=== PATIENT | female | born 1990 | race Caucasian/White ===

== ENCOUNTER 2018-07-16 11:33 | Inpatient (IN) | payer MEDICAID | END 2018-07-17 11:54 | disposition home or self-care (01) | LOC: ER 11:33 → ED HOLD 14:57 → SUR 3N 21:20 ==

== ENCOUNTER 2018-07-26 20:42 | Emergency (ER) | payer MEDICAID ==
[~2018-07-26] VITALS: Ht 170.2 cm; Wt 61.4 kg
[~2018-07-26 20:42] MED LIST: AMIT100T2 PO; DULO-31 PO; HYDR-3965 PO; ONDA4TAB6 PO
[2018-07-26] MEDS ORDERED: normal saline 1000ML IV soln IVB ONE (20:50)
[2018-07-26] MEDS ORDERED: LORazepam 2 mg/ml vial IV ONE (20:50)
--- NOTE | 2018-07-26 21:20 | NUR ---
CONTACTED POISON CONTROL REGARDING INGESTION OF MITRAGYNA SPECIOSA. POISON CONTROL RECOMENDS CMP, EKG, AND SUPPORTIVE CARE WITH BENZOS NEEDED. MONITOR PT FOR SZ'S, HTN, TACHYCARDIA, GI UPSET, AND WITHDRAWL SYMPTOMS. POISON CONTROL DID NOT SPECIFY A SPECIFIC AMOUNT OF TIME PT NEEDED TO BE MONITORED IN ED.
[2018-07-26 21:25] LABS: ALANINE AMINOTRANSFERASE 31 U/L (12-78); ALBUMIN 3.7 G/DL (3.4-5.0); ALBUMIN/GLOBULIN RATIO 1.3 (1.1-1.5); ALKALINE PHOSPHATASE 58 IU/L (46-116); ANION GAP 10 (8-16); ASPARTATE AMINO TRANSFERASE 23 U/L (10-37); BILIRUBIN,TOTAL 0.3 MG/DL (0.1-1.0); BLOOD UREA NITROGEN 8 MG/DL (7-18); BUN/CREATININE RATIO 10.8 (6.6-38.0); CALCIUM 8.1 MG/DL (8.5-10.1); CHLORIDE 106 MMOL/L (99-107); CREATININE 0.74 MG/DL (0.40-0.90); ETHANOL < 0.010 GM/DL (0.0-0.010); GLUCOSE 131 MG/DL (70-104); POTASSIUM 3.6 MMOL/L (3.5-5.1); SODIUM 140 MMOL/L (135-145); TOTAL CARBON DIOXIDE 24.4 MMOL/L (24-32); TOTAL PROTEIN 6.6 G/DL (6.4-8.2); eGFR > 90 ML/MIN
[2018-07-26 21:26] LABS: BASOPHILS % (AUTO) 0.1 % (0-1); EOSINOPHILS # (AUTO) 0.1 X10'3 (0-0.9); EOSINOPHILS % (AUTO) 0.3 % (0-6); HEMATOCRIT 36.6 % (35.0-45.0); LYMPHOCYTES # (AUTO) 1.8 X10'3 (1.1-4.8); LYMPHOCYTES % (AUTO) 11.8 % (21-51); MEAN CORPUSCULAR HEMOGLOBIN 29.2 PG (27.0-31.0); MEAN CORPUSCULAR HGB CONC 32.7 g/dL (33.0-36.5); MEAN CORPUSCULAR VOLUME 89.4 FL (78-98); MEAN PLATELET VOLUME 6.7 FL (7.4-10.4); MONOCYTES # (AUTO) 0.5 X10'3 (0-0.9); MONOCYTES % (AUTO) 3.3 % (2-12); NEUTROPHILS % (AUTO) 84.5 % (42-75); PLATELET COUNT 432 X10'3 (140-440); RED BLOOD COUNT 4.09 X10'6 (4.20-5.60); RED CELL DISTRIBUTION WIDTH 14.4 % (11.5-14.5); WHITE BLOOD COUNT 15.3 X10'3 (4.5-11.0)
[2018-07-26 21:31] LABS: ACETAMINOPHEN < 2.0 UG/ML (10-30)
[2018-07-26 22:16] LABS: URINE HCG NEGATIVE (NEG)
[2018-07-26 22:24] LABS: CLARITY,URINE CLEAR (Clear); COLOR,URINE YELLOW (Yellow); GLUCOSE, URINE NEGATIVE (Neg); KETONES,URINE NEGATIVE (Neg); LEUKOCYTE ESTERASE ,URINE NEGATIVE (Neg); NITRITES, URINE NEGATIVE (Neg); OCCULT BLOOD,URINE NEGATIVE (Neg); PROTEIN,URINE NEGATIVE (Neg); UROBILINOGEN,URINE 0.2 E.U/dL (0.2-1.0)
[2018-07-26 22:27] LABS: URINE AMPHETAMINE SCREEN POSITIVE (Neg); URINE BARBITUATE SCREEN NEGATIVE (Neg); URINE BENZODIAZEPINES SCREEN NEGATIVE (Neg); URINE CANNABINOID SCREEN POSITIVE (Neg); URINE COCAINE SCREEN NEGATIVE (Neg); URINE METHADONE SCREEN NEGATIVE (Neg); URINE OPIATE SCREEN POSITIVE (Neg); URINE PHENCYCLIDINE SCREEN NEGATIVE (Neg)
[2018-07-26 22:29] LABS: UA COLLECTION TYPE NON-SPECIFIED
[2018-07-26 23:07] VITALS: BP 146/94
== END 2018-07-26 23:12 | disposition home or self-care (01) ==
LOC: ER 20:42
DX: T60.3X1A Toxic effect of herbicides and fungicides, accidental (unintentional), initial encounter (principal); F41.9 Anxiety disorder, unspecified; F15.10 Other stimulant abuse, uncomplicated; F11.90 Opioid use, unspecified, uncomplicated; Z79.899 Other long term (current) drug therapy; Y92.89 Other specified places as the place of occurrence of the external cause
CPT/HCPCS: 36415; 80053; 80305; 80320; 80329; 81003; 81025; 85025; 93005; 96374; 99284; J2060; J7030

== ENCOUNTER 2018-09-27 09:34 | Outpatient (CLI) | payer MEDICAID ==
[~2018-09-27 09:34] MED LIST changes: -HYDR-3965 PO
== END 2018-09-27 23:59 | disposition home or self-care (01) ==
LOC: RAD 09:34
PROVIDERS: ATTEND Nurse Practitioner Family
DX: R56.9 Unspecified convulsions (principal); F19.10 Other psychoactive substance abuse, uncomplicated
CPT/HCPCS: 95819

== ENCOUNTER 2019-12-30 10:17 | Emergency (ER) | payer MEDICAID ==
[~2019-12-30] VITALS: Ht 167.6 cm; Wt 55.1 kg
[2019-12-30] MEDS ORDERED: LEVE750T6 PO (10:36)
[2019-12-30 11:57] VITALS: BP 141/99
== END 2019-12-30 11:59 | disposition home or self-care (01) ==
LOC: ER 10:17
DX: G40.909 Epilepsy, unspecified, not intractable, without status epilepticus (principal); F11.10 Opioid abuse, uncomplicated; F19.10 Other psychoactive substance abuse, uncomplicated; F15.90 Other stimulant use, unspecified, uncomplicated; Z79.899 Other long term (current) drug therapy
CPT/HCPCS: 99284

== ENCOUNTER 2020-03-03 13:17 | Inpatient (IN) | payer MEDICAID ==
[~2020-03-03] VITALS: Ht 162.6 cm; Wt 61.2 kg
[~2020-03-03 13:17] MED LIST changes: +LEVE750T6 PO; +etomidate 2mg/ml inj. ONE; +rocuronium 10mg/ml inj IV ONE; +sodium bicarbonate (8.4%) 1 mEq/ml syringe ONE
--- NOTE | 2020-03-03 13:22 | NUR ---
Patient received 1 amp of bicarb per MD orders. Preparing to intubate. Patient started having a seizure, grand mal seizure. lasting approx. 15 seconds. Blood glucose per EMS 101 mg/dL.
[2020-03-03] MEDS ORDERED: LORazepam 2 mg/ml vial ONE (13:24)
--- NOTE | 2020-03-03 13:25 | NUR ---
Preparing 1 mg IV ativan, Administering 1 mg IV Ativan once now.
--- NOTE | 2020-03-03 13:25 | NUR ---
Intermittent seizures lasting approx. 1 Addendum: 03/03/20 at 1325 by HKISER 20 seconds in length.
--- NOTE | 2020-03-03 13:26 | NUR ---
Etomidate 20 mg IV prepared by Geoff hidalgo.
[2020-03-03] MEDS ORDERED: succinylcholine 20mg/ml inj IV ONE (13:27)
--- NOTE | 2020-03-03 13:30 | NUR ---
From 1325 til current patient had three seizures lasting approx. 10-20 seconds in length.
[2020-03-03] MEDS: sodium bicarbonate (8.4%) inj. 150 MEQ in dextrose 5%-water 1,000 ML IV SCH ×2 (13:35→22:47)
[2020-03-03] MEDS ORDERED: normal saline 1000ml 1,000 ML IVB ONE ×2 (13:40)
[2020-03-03] MEDS ORDERED: levetiracetam inj 500 MG in normal saline 100ml IV soln 95 ML IV SCH ×2 (13:52→20:00)
[2020-03-03] MEDS ORDERED: LORazepam 2 mg/ml vial IV ONE (13:55)
--- NOTE | 2020-03-03 14:00 | NUR ---
posion control called
[2020-03-03] MEDS ORDERED: charcoal, activated 50 GM/240 ML bottle PO ONE (14:05)
[2020-03-03] MEDS ORDERED: PEG 3350/Na sulf,bicarb,Cl/KCl oral sol 4 liter bottle PO ONE ×2 (14:05→14:35)
--- NOTE | 2020-03-03 14:13 | NUR ---
Patients BP 49/27 Levophed titrated as ordered.
[2020-03-03] MEDS: NORepinephrine 8 MG in NS 250ml IV soln IV SCH ×3 (14:19→17:22)
[2020-03-03 14:21] LABS: ABG BASE EXCESS -7.5 mmol/L (-2.0-2.0); ABG HCO3 16.3 mmol/L (22.0-26.0); ABG PO2 (T) 251.5 mmHg (75.0-100.0); ALLEN'S TEST POSITIVE; PEEP 5 cm H2O; RESPIRATORY RATE 16 b/min; TIDAL VOLUME 450 mL; TOTAL HEMOGLOBIN 11.3 G/dl (12.0-16.0)
[2020-03-03] MEDS: propofol 1000mg/100ml bottle 100 ML IV SCH ×4 (14:22→19:48)
[2020-03-03] MEDS: Levetiracetam-NS 500mg/100ml 100 ML IV SCH (14:22)
--- NOTE | 2020-03-03 14:26 | NUR ---
2 amps bi carb push at [address] Sequeira push two more amps stat. 1425- 2 amps bi-carb push.
[2020-03-03 14:28] LABS: BASOPHILS % (AUTO) 0.5 % (0-1); EOSINOPHILS # (AUTO) 0.1 X10'3 (0-0.9); EOSINOPHILS % (AUTO) 0.9 % (0-6); HEMATOCRIT 35.2 % (35.0-45.0); HEMOGLOBIN 11.7 g/dl (12.0-16.0); MEAN CORPUSCULAR HEMOGLOBIN 29.7 PG (27.0-31.0); MEAN CORPUSCULAR HGB CONC 33.2 g/dL (33.0-36.5); MEAN CORPUSCULAR VOLUME 89.5 FL (78-98); MEAN PLATELET VOLUME 7.1 FL (7.4-10.4); MONOCYTES # (AUTO) 0.3 X10'3 (0-0.9); MONOCYTES % (AUTO) 5.8 % (2-12); NEUTROPHILS # (AUTO) 3.2 X10'3 (1.8-7.7); NEUTROPHILS % (AUTO) 56.8 % (42-75); PLATELET COUNT 265 X10'3 (140-440); RED BLOOD COUNT 3.93 X10'6 (4.20-5.60); RED CELL DISTRIBUTION WIDTH 13.5 % (11.5-14.5); WHITE BLOOD COUNT 5.7 X10'3 (4.5-11.0)
[2020-03-03] MEDS ORDERED: charcoal, activated 50 GM/240 ML bottle PO STA (14:30)
[2020-03-03 14:31] LABS: ALANINE AMINOTRANSFERASE 16 U/L (12-78); ALBUMIN 3.5 G/DL (3.4-5.0); ALBUMIN/GLOBULIN RATIO 1.1 (1.1-1.5); ALKALINE PHOSPHATASE 52 IU/L (46-116); ANION GAP 9 (8-16); ASPARTATE AMINO TRANSFERASE 16 U/L (10-37); BILIRUBIN,TOTAL 0.5 MG/DL (0.1-1.0); BLOOD UREA NITROGEN 4 MG/DL (7-18); BUN/CREATININE RATIO 5.2 (6.6-38.0); CALCIUM 8.4 MG/DL (8.5-10.1); CHLORIDE 111 MMOL/L (99-107); CREATININE 0.77 MG/DL (0.40-0.90); GLUCOSE 96 MG/DL (70-104); MAGNESIUM 1.9 MG/DL (1.5-2.4); SODIUM 151 MMOL/L (135-145); TOTAL CARBON DIOXIDE 30.8 MMOL/L (24-32); TOTAL PROTEIN 6.7 G/DL (6.4-8.2); eGFR 90 ML/MIN
--- NOTE | 2020-03-03 14:32 | NUR ---
Spoke with patients mother, Yahaira Koenig, who stated that her daughter had come over to her house and when she sat on the bed she stood up, feeling dizziness and stumbled. Mother then looked at her medication bottles and noticed that the whole bottle of medication, amitriptyline, was empty, mother estimates that she had taken approx. 30-40 tablets. She also stated that she is unsure whether she has been taking her keppra, she is currently going to the [facility] for suboxone treatments as well. I discussed with her patients clinic status and discussed having her come in to ED to see her daughter with Dr. Ochoa and Anjali Mckeon RN, who both agreed that she could come into room after Dr. Sequeira had completed artial line insertion. Yahaira notified.
--- NOTE | 2020-03-03 14:39 | NUR ---
Charcoal adminstered via OG by CHANCE Williamson
--- NOTE | 2020-03-03 14:42 | NUR ---
2 amps carb IVP hsz- [id number]
--- NOTE | 2020-03-03 14:47 | NUR ---
Dr. Sequeira at bedside for art line
--- NOTE | 2020-03-03 14:50 | NUR ---
Option for treatment seizures if versed fails to control them, try administering phenobarbital bolus doses and decrease Propofol to maintain adequate blood pressure. Poison control MD does not recommend drip at this time. Dr. Parada until 1599, Contact poison center after 1599. Addendum: 03/03/20 at [address] Sequeira regarding update from Dr. Parada
--- NOTE | 2020-03-03 14:55 | NUR ---
Verbal order to increase propofol to 20mcg/kg/min
[2020-03-03] MEDS ORDERED: magnesium 4gm in 100ml NS 100 ML IV PRN (15:10)
[2020-03-03] MEDS ORDERED: Neutra Phos packet PO PRN (15:10)
[2020-03-03] MEDS ORDERED: potassium Cl 20 mEq SR tablet PO PRN ×2 (15:10)
[2020-03-03] MEDS ORDERED: LIDOcaine 2% 10ml TOPICAL JELLY (Urojet) TP ONE (15:10)
[2020-03-03] MEDS: K, MAG and/or Phos replacement - Verify level? MC SCH (15:10)
[2020-03-03] MEDS ORDERED: sodium phosphate inj. 30 MMOL in dextrose 5%-water 250 ML IV PRN (15:10)
[2020-03-03] MEDS ORDERED: magnesium 2GM in 50ml NS 50 ML IV PRN (15:10)
[2020-03-03] MEDS ORDERED: magnesium Cl slow-release 64mg tablet PO PRN (15:10)
[2020-03-03] MEDS ORDERED: sodium phosphate inj. 15 MMOL in dextrose 5%-water 250 ML IV PRN (15:10)
--- NOTE | 2020-03-03 15:17 | NUR ---
1510-2 AMPS BICARB IVP
[2020-03-03] MEDS ORDERED: PHENOBARBITAL IV ONE (15:20)
[2020-03-03] MEDS ORDERED: NORMAL SALINE IV ONE (15:20)
--- NOTE | 2020-03-03 15:22 | NUR ---
rectal tube inserted.
--- NOTE | 2020-03-03 15:34 | NUR ---
Vicente eKithtly administered via OG tube by CHANCE Davis
[2020-03-03 15:36] LABS: ABG BASE EXCESS 13.2 mmol/L (-2.0-2.0); ABG HCO3 35.5 mmol/L (22.0-26.0); ABG OXYGEN SATURATION 97.2 % (94-97); ABG PCO2 (T) 36.2 mmHg (32.0-45.0); ABG PO2 (T) 93.5 mmHg (75.0-100.0); FCOHb 0.5 % (0.0-3.9); FO2Hb 96.7 % (94-97); RESPIRATORY RATE 16 b/min; TIDAL VOLUME 450 mL; TOTAL HEMOGLOBIN 10.5 G/dl (12.0-16.0)
[2020-03-03 15:50] LABS: ABG BASE EXCESS 10.5 mmol/L (-2.0-2.0); ABG OXYGEN SATURATION 83.9 % (94-97); ABG PCO2 (T) 36.2 mmHg (32.0-45.0); ABG PO2 (T) 40.2 mmHg (75.0-100.0); FO2Hb 83.1 % (94-97); PEEP 5 cm H2O; RESPIRATORY RATE 20 b/min; TIDAL VOLUME 450 mL; TOTAL HEMOGLOBIN 11.5 G/dl (12.0-16.0)
--- NOTE | 2020-03-03 15:50 | NUR ---
2 amps bicarb IVP now
--- NOTE | 2020-03-03 15:54 | NUR ---
Dr Sequeira aware that levophed maxed out.
--- NOTE | 2020-03-03 16:06 | NUR ---
2 amps bi carb ivp now QRS 130
[2020-03-03 16:09] LABS: ACETAMINOPHEN 3.7 UG/ML (10-30); ALANINE AMINOTRANSFERASE 20 U/L (12-78); ALBUMIN 2.9 G/DL (3.4-5.0); ALBUMIN/GLOBULIN RATIO 1.2 (1.1-1.5); ALKALINE PHOSPHATASE 45 IU/L (46-116); ANION GAP 4 (8-16); ASPARTATE AMINO TRANSFERASE 28 U/L (10-37); BILIRUBIN,TOTAL 0.7 MG/DL (0.1-1.0); BLOOD UREA NITROGEN 4 MG/DL (7-18); BUN/CREATININE RATIO 5.5 (6.6-38.0); CHLORIDE 114 MMOL/L (99-107); CREATININE 0.73 MG/DL (0.40-0.90); ETHANOL 0.041 GM/DL (0.0-0.010); GLUCOSE 105 MG/DL (70-104); TOTAL CARBON DIOXIDE 39.8 MMOL/L (24-32); TOTAL PROTEIN 5.4 G/DL (6.4-8.2); eGFR > 90 ML/MIN
[2020-03-03] MEDS ORDERED: calcium chloride inj. 10,000 MG in normal saline 500ml IV soln 400 ML IV PRN (16:10)
--- NOTE | 2020-03-03 16:19 | NUR ---
Dr Sequeira at bedside for liane placement
[2020-03-03 16:20] LABS: POTASSIUM 2.9 MMOL/L (3.5-5.1); SODIUM 158 MMOL/L (135-145)
[2020-03-03] MEDS ORDERED: LEVE750T PO (16:32)
[2020-03-03] MEDS ORDERED: LORA10TA7 PO (16:32)
[2020-03-03] MEDS ORDERED: BUPR1FIL3 SL (16:32)
[2020-03-03] MEDS ORDERED: GABA300C PO (16:32)
[2020-03-03] MEDS ORDERED: ALBU2.5V10 IH (16:32)
[2020-03-03] MEDS ORDERED: BUSP15TA3 PO (16:32)
[2020-03-03] MEDS ORDERED: OLAN2.5T28 PO (16:32)
[2020-03-03] MEDS ORDERED: SERT50TA10 PO ×2 (16:32)
[2020-03-03] MEDS ORDERED: FLUT16SP26 NS (16:32)
[2020-03-03] MEDS ORDERED: ACET-1025 PO (16:35)
[2020-03-03] MEDS ORDERED: MELA5TAB12 PO (16:35)
[2020-03-03 16:39] LABS: URINE HCG NEGATIVE (NEG)
[2020-03-03 16:42] LABS: CLARITY,URINE CLEAR (Clear); COLOR,URINE YELLOW (Yellow); GLUCOSE, URINE NEGATIVE (Neg); KETONES,URINE NEGATIVE (Neg); LEUKOCYTE ESTERASE ,URINE NEGATIVE (Neg); NITRITES, URINE NEGATIVE (Neg); OCCULT BLOOD,URINE NEGATIVE (Neg); PH,URINE 8.5 (4.8-8.0); PROTEIN,URINE NEGATIVE (Neg); UA COLLECTION TYPE FOLEY CATH; UROBILINOGEN,URINE 0.2 E.U/dL (0.2-1.0)
[2020-03-03 16:45] LABS: URINE AMPHETAMINE SCREEN POSITIVE (Neg); URINE BARBITUATE SCREEN POSITIVE (Neg); URINE BENZODIAZEPINES SCREEN NEGATIVE (Neg); URINE CANNABINOID SCREEN POSITIVE (Neg); URINE COCAINE SCREEN NEGATIVE (Neg); URINE METHADONE SCREEN NEGATIVE (Neg); URINE OPIATE SCREEN POSITIVE (Neg); URINE PHENCYCLIDINE SCREEN NEGATIVE (Neg)
[2020-03-03] MEDS ORDERED: potassium phosphate inj 30 MMOL in dextrose 5%-water 250 ML IV ONE (17:00)
--- NOTE | 2020-03-03 17:00 | NUR ---
Called Dr. Sequeira with critical phos 0.5. orders received for k phos 30 mmols over 1 hour. then another 30 mmols over 2 hours x 3 doses. pos to be drawn q [address] med orders. will enter lab orders.
--- NOTE | 2020-03-03 17:03 | NUR ---
ERVIN (MOTHER) PHONE NUMBER: [phone]
[2020-03-03] MEDS: midazolam 100mg in NS 100ml 100 ML IV PRN (17:23)
[2020-03-03] MEDS: potassium phosphate inj 30 MMOL in dextrose 5%-water 250 ML IV SCH ×2 (17:57→18:05)
--- NOTE | 2020-03-03 18:23 | NUR ---
Pt maintaing BP. Levophed discontinued.
--- NOTE | 2020-03-03 18:24 | NUR ---
Pt's mother at bedside. All belongings sent with her. Cell phone, shoes cigarettes and rv repairer. Pts' clothes were thrown away after being cut off.
--- NOTE | 2020-03-03 18:48 | NUR ---
I have received report from Sylvia FLETCHER from ED and had the opportunity to ask questions. Room is set up and awaiting PT arrival.
--- NOTE | 2020-03-03 19:30 | NUR ---
PT arrived to to unit via gurney @ 1910. PT was transferred over to ICU bed via slide-board and placed on bedside monitor. RT placed PT on Vent, setting are AC/VC FiO1 50%, rate 20, TV 450, PEEP 5. PT tolerating well, O2 sat greater than 97%. VSS. PT arrived with Levophed not being needed, ED RN stated it had been off prior to transfer. PT is in ST with HR in low 100's. obiee architect on unit and will be getting CVVH machine ready. PT has F/C in place draining to gravity as well as a rectal tube with no output noted at this time. Bed is locked and low. Bilat soft wrist restraints in place and secure. Will continue to monitor.
[2020-03-03 20:00] VITALS: BP 117/72
[2020-03-03] MEDS: heparin, porcine 5000 units/ml vial SQ SCH (20:00)
[2020-03-03] MEDS: Duosol 4k/NO Calcium 5,000 ML HE SCH ×3 (20:08→20:10)
[2020-03-03] MEDS: citrate dextrose 1000ml IV sol 1,000 ML IV PRN (20:11)
[2020-03-03 21:00] VITALS: BP 116/72
--- NOTE | 2020-03-03 21:14 | NUR ---
Call made to Pharmacy to get clarification for Potassium Phos order. Both eMar and label state two different run times of 130ml/hr as well 43.3ml/hr. Pharmacist states it was ok to run the K-Phos through a CVL 130ml/hr. Changes made in pump which has a max rate of 125ml/hr CRN verified rate change. Will continue to monitor.
[2020-03-03 22:00] VITALS: BP 118/76
[2020-03-03 22:35] LABS: ABG BASE EXCESS 1.3 mmol/L (-2.0-2.0); ABG HCO3 24.4 mmol/L (22.0-26.0); FCOHb 0.3 % (0.0-3.9); FMetHb 0.4 % (0.0-1.5); FO2Hb 98.3 % (94-97); PATIENT TEMPERATURE 36.1; PEEP 5 cm H2O; RESPIRATORY RATE 20 b/min; TIDAL VOLUME 450 mL; TOTAL HEMOGLOBIN 11.2 G/dl (12.0-16.0)
--- NOTE | 2020-03-03 22:45 | NUR ---
Lab called to report that the 2200 labs that were sent down were not able to be resulted. They have been cancelled and will be re-drawn
[2020-03-03 23:00] VITALS: BP 122/78
[2020-03-04] VITALS (24 sets, daily range): BP systolic 93–166; BP diastolic 59–100
[2020-03-04 00:03] LABS: ALANINE AMINOTRANSFERASE 20 U/L (12-78); ALBUMIN 2.9 G/DL (3.4-5.0); ALKALINE PHOSPHATASE 47 IU/L (46-116); ANION GAP 12 (8-16); ASPARTATE AMINO TRANSFERASE 38 U/L (10-37); BILIRUBIN,TOTAL 0.5 MG/DL (0.1-1.0); BLOOD UREA NITROGEN 5 MG/DL (7-18); CALCIUM 6.9 MG/DL (8.5-10.1); CHLORIDE 114 MMOL/L (99-107); CREATININE 0.71 MG/DL (0.40-0.90); GLUCOSE 96 MG/DL (70-104); MAGNESIUM 1.6 MG/DL (1.5-2.4); SODIUM 153 MMOL/L (135-145); TOTAL CARBON DIOXIDE 26.7 MMOL/L (24-32); TOTAL PROTEIN 5.7 G/DL (6.4-8.2); eGFR > 90 ML/MIN
[2020-03-04 00:09] LABS: POTASSIUM 2.8 MMOL/L (3.5-5.1)
[2020-03-04] MEDS ORDERED: calcium chloride inj. 1,000 MG in normal saline 100ml IV soln 100 ML IV PRN (00:10)
[2020-03-04] MEDS: potassium phosphate inj 30 MMOL in dextrose 5%-water 250 ML IV SCH (00:27)
[2020-03-04] MEDS: potassium Cl 20mEq/100mL bag 100 ML IV PRN ×6 (00:41→19:36)
[2020-03-04 00:45] LABS: BASOPHILS % (AUTO) 0.4 % (0-1); EOSINOPHILS % (AUTO) 0.4 % (0-6); LYMPHOCYTES # (AUTO) 1.1 X10'3 (1.1-4.8); LYMPHOCYTES % (AUTO) 11.7 % (21-51); MEAN PLATELET VOLUME 6.8 FL (7.4-10.4); MONOCYTES # (AUTO) 0.4 X10'3 (0-0.9); MONOCYTES % (AUTO) 4.5 % (2-12); NEUTROPHILS # (AUTO) 8.2 X10'3 (1.8-7.7); PLATELET COUNT 220 X10'3 (140-440); WHITE BLOOD COUNT 9.8 X10'3 (4.5-11.0)
[2020-03-04 00:56] LABS: ABG HCO3 24.3 mmol/L (22.0-26.0); ABG OXYGEN SATURATION 98.6 % (94-97); ABG PCO2 (T) 31.6 mmHg (32.0-45.0); ABG PO2 (T) 132.4 mmHg (75.0-100.0); FCOHb 0.3 % (0.0-3.9); FMetHb 0.3 % (0.0-1.5); PATIENT TEMPERATURE 35.5; PEEP 5 cm H2O; RESPIRATORY RATE 20 b/min; TIDAL VOLUME 450 mL; TOTAL HEMOGLOBIN 11.3 G/dl (12.0-16.0)
[2020-03-04] MEDS: propofol 1000mg/100ml bottle 100 ML IV SCH ×2 (01:00→06:43)
[2020-03-04 01:31] LABS: RED BLOOD COUNT 2.84 X10'6 (4.20-5.60)
[2020-03-04 01:32] LABS: HEMATOCRIT 25.6 % (35.0-45.0); HEMOGLOBIN 9.3 g/dl (12.0-16.0); MEAN CORPUSCULAR HEMOGLOBIN 32.8 PG (27.0-31.0); MEAN CORPUSCULAR HGB CONC 36.4 g/dL (33.0-36.5); MEAN CORPUSCULAR VOLUME 89.9 FL (78-98); RED CELL DISTRIBUTION WIDTH 12.9 % (11.5-14.5)
[2020-03-04] MEDS: citrate dextrose 1000ml IV sol 1,000 ML IV PRN (01:49)
[2020-03-04 02:02] LABS: BASOPHILS # (AUTO) 0.1 X10'3 (0-0.2); BASOPHILS % (AUTO) 0.7 % (0-1); EOSINOPHILS % (AUTO) 0.3 % (0-6); LYMPHOCYTES # (AUTO) 1.1 X10'3 (1.1-4.8); LYMPHOCYTES % (AUTO) 11.9 % (21-51); MONOCYTES # (AUTO) 0.4 X10'3 (0-0.9); MONOCYTES % (AUTO) 4.3 % (2-12); NEUTROPHILS # (AUTO) 7.6 X10'3 (1.8-7.7); NEUTROPHILS % (AUTO) 82.8 % (42-75)
[2020-03-04 02:09] LABS: HEMATOCRIT 29.5 % (35.0-45.0); HEMOGLOBIN 10.3 g/dl (12.0-16.0); MEAN CORPUSCULAR HEMOGLOBIN 31.5 PG (27.0-31.0); MEAN CORPUSCULAR HGB CONC 34.8 g/dL (33.0-36.5); MEAN CORPUSCULAR VOLUME 90.6 FL (78-98); RED BLOOD COUNT 3.26 X10'6 (4.20-5.60); RED CELL DISTRIBUTION WIDTH 13.2 % (11.5-14.5)
[2020-03-04 02:11] LABS: PLATELET COUNT 201 X10'3 (140-440); WHITE BLOOD COUNT 9.2 X10'3 (4.5-11.0)
[2020-03-04 02:12] LABS: MEAN PLATELET VOLUME 7.4 FL (7.4-10.4)
[2020-03-04 02:24] LABS: ALBUMIN 2.8 G/DL (3.4-5.0); ALKALINE PHOSPHATASE 48 IU/L (46-116); ANION GAP 17 (8-16); BILIRUBIN,TOTAL 0.6 MG/DL (0.1-1.0); BLOOD UREA NITROGEN 4 MG/DL (7-18); BUN/CREATININE RATIO 6.5 (6.6-38.0); CALCIUM 7.1 MG/DL (8.5-10.1); CHLORIDE 109 MMOL/L (99-107); CREATININE 0.62 MG/DL (0.40-0.90); MAGNESIUM 1.6 MG/DL (1.5-2.4); SODIUM 146 MMOL/L (135-145); TOTAL CARBON DIOXIDE 20.4 MMOL/L (24-32); TOTAL PROTEIN 5.6 G/DL (6.4-8.2); eGFR > 90 ML/MIN
[2020-03-04 02:25] LABS: GLUCOSE 121 MG/DL (70-104); PHOSPHORUS 2.7 MG/DL (2.3-4.5); POTASSIUM 3.4 MMOL/L (3.5-5.1)
[2020-03-04 02:36] LABS: ALANINE AMINOTRANSFERASE 20 U/L (12-78); ASPARTATE AMINO TRANSFERASE 38 U/L (10-37)
[2020-03-04] MEDS: magnesium 4gm in 100ml NS 100 ML IV PRN (03:03)
[2020-03-04 03:10] LABS: ABG BASE EXCESS -0.1 mmol/L (-2.0-2.0); ABG HCO3 23.3 mmol/L (22.0-26.0); ABG OXYGEN SATURATION 98.5 % (94-97); ABG PCO2 (T) 32.2 mmHg (32.0-45.0); ABG PO2 (T) 129.9 mmHg (75.0-100.0); FCOHb 0.3 % (0.0-3.9); FMetHb 0.2 % (0.0-1.5); PATIENT TEMPERATURE 35.9; PEEP 5 cm H2O; RESPIRATORY RATE 20 b/min; TIDAL VOLUME 450 mL; TOTAL HEMOGLOBIN 11.5 G/dl (12.0-16.0)
--- NOTE | 2020-03-04 03:30 | NUR ---
CVVH went down. bracelet maker novelty still in building and will be down to get machine up and running again.
[2020-03-04] MEDS: Duosol 4k/NO Calcium 5,000 ML HE SCH ×2 (04:44→04:45)
[2020-03-04 05:19] LABS: BASOPHILS % (AUTO) 0.2 % (0-1); EOSINOPHILS # (AUTO) 0.1 X10'3 (0-0.9); EOSINOPHILS % (AUTO) 0.9 % (0-6); HEMATOCRIT 29.5 % (35.0-45.0); HEMOGLOBIN 10.3 g/dl (12.0-16.0); LYMPHOCYTES # (AUTO) 1.4 X10'3 (1.1-4.8); MEAN CORPUSCULAR HEMOGLOBIN 31.2 PG (27.0-31.0); MEAN CORPUSCULAR VOLUME 89.2 FL (78-98); MEAN PLATELET VOLUME 6.9 FL (7.4-10.4); MONOCYTES # (AUTO) 0.4 X10'3 (0-0.9); MONOCYTES % (AUTO) 4.3 % (2-12); NEUTROPHILS # (AUTO) 6.7 X10'3 (1.8-7.7); NEUTROPHILS % (AUTO) 78.6 % (42-75); PLATELET COUNT 135 X10'3 (140-440); RED BLOOD COUNT 3.31 X10'6 (4.20-5.60); RED CELL DISTRIBUTION WIDTH 13.3 % (11.5-14.5); WHITE BLOOD COUNT 8.6 X10'3 (4.5-11.0)
[2020-03-04 05:29] LABS: ALBUMIN 2.6 G/DL (3.4-5.0); ALKALINE PHOSPHATASE 46 IU/L (46-116); ANION GAP 11 (8-16); BLOOD UREA NITROGEN 4 MG/DL (7-18); BUN/CREATININE RATIO 7.5 (6.6-38.0); CHLORIDE 113 MMOL/L (99-107); CREATININE 0.53 MG/DL (0.40-0.90); MAGNESIUM 3.1 MG/DL (1.5-2.4); SODIUM 150 MMOL/L (135-145); TOTAL PROTEIN 5.1 G/DL (6.4-8.2); eGFR > 90 ML/MIN
[2020-03-04 05:30] LABS: GLUCOSE 100 MG/DL (70-104); PHOSPHORUS 3.8 MG/DL (2.3-4.5); POTASSIUM 3.5 MMOL/L (3.5-5.1)
--- NOTE | 2020-03-04 05:30 | NUR ---
CVVH Machine still down, frame gate mortiser operator remains at bedside and has placed a call the to 1-800 # to trouble shoot the problem. PT's VS remain stable, Will continue to monitor.
[2020-03-04 05:32] LABS: PARTIAL THROMBOPLASTIN TIME 27 SECONDS (22-32)
[2020-03-04 05:41] LABS: ALANINE AMINOTRANSFERASE 14 U/L (12-78); ASPARTATE AMINO TRANSFERASE 25 U/L (10-37)
--- NOTE | 2020-03-04 06:45 | NUR ---
Patient in room ICU 2038. I have received report from Jude FLETCHER and had the opportunity to ask questions and assume patient care.
--- NOTE | 2020-03-04 07:03 | NUR ---
Problems reprioritized. Patient report given, questions answered & plan of care reviewed with Tammi FLETCHER.
[2020-03-04] MEDS: sodium bicarbonate (8.4%) inj. 150 MEQ in dextrose 5%-water 1,000 ML IV SCH ×2 (07:13→09:34)
[2020-03-04] MEDS ORDERED: heparin 1,000 units/ml 10ml inj HE ONE ×2 (07:30)
--- NOTE | 2020-03-04 07:45 | NUR ---
Please disregard CV treatment charge entered [id number] 03/04. It was a dry run only Addendum: 03/04/20 at 0746 by Dinora PAZ RN Amended: Links added.
[2020-03-04] MEDS: K, MAG and/or Phos replacement - Verify level? MC SCH (08:00)
[2020-03-04] MEDS: pantoprazole 40 MG vial IV SCH (08:04)
[2020-03-04] MEDS: Levetiracetam-NS 500mg/100ml 100 ML IV SCH ×2 (08:05→21:11)
[2020-03-04] MEDS: heparin, porcine 5000 units/ml vial SQ SCH ×2 (08:05→21:11)
[2020-03-04 09:25] LABS: ABG BASE EXCESS 4.7 mmol/L (-2.0-2.0); ABG HCO3 27.3 mmol/L (22.0-26.0); ABG OXYGEN SATURATION 95.4 % (94-97); ABG PCO2 (T) 34.4 mmHg (32.0-45.0); ABG PO2 (T) 74.8 mmHg (75.0-100.0); FCOHb 0.3 % (0.0-3.9); FMetHb 0.1 % (0.0-1.5); PATIENT TEMPERATURE 37.5; PEEP 5 cm H2O; RESPIRATORY RATE 20 b/min; TIDAL VOLUME 450 mL; TOTAL HEMOGLOBIN 11.2 G/dl (12.0-16.0)
[2020-03-04 09:30] LABS: BASOPHILS % (AUTO) 0.3 % (0-1); EOSINOPHILS # (AUTO) 0.1 X10'3 (0-0.9); EOSINOPHILS % (AUTO) 1.4 % (0-6); HEMATOCRIT 30.8 % (35.0-45.0); HEMOGLOBIN 10.3 g/dl (12.0-16.0); LYMPHOCYTES # (AUTO) 1.1 X10'3 (1.1-4.8); LYMPHOCYTES % (AUTO) 13.4 % (21-51); MEAN CORPUSCULAR HEMOGLOBIN 29.7 PG (27.0-31.0); MEAN CORPUSCULAR HGB CONC 33.3 g/dL (33.0-36.5); MEAN CORPUSCULAR VOLUME 89.1 FL (78-98); MEAN PLATELET VOLUME 6.9 FL (7.4-10.4); MONOCYTES # (AUTO) 0.4 X10'3 (0-0.9); MONOCYTES % (AUTO) 4.6 % (2-12); NEUTROPHILS # (AUTO) 6.5 X10'3 (1.8-7.7); NEUTROPHILS % (AUTO) 80.3 % (42-75); PLATELET COUNT 164 X10'3 (140-440); RED BLOOD COUNT 3.46 X10'6 (4.20-5.60); RED CELL DISTRIBUTION WIDTH 13.6 % (11.5-14.5); WHITE BLOOD COUNT 8.1 X10'3 (4.5-11.0)
[2020-03-04 09:40] LABS: ALANINE AMINOTRANSFERASE 16 U/L (12-78); ALBUMIN 2.8 G/DL (3.4-5.0); ALBUMIN/GLOBULIN RATIO 1.1 (1.1-1.5); ALKALINE PHOSPHATASE 50 IU/L (46-116); ANION GAP 8 (8-16); ASPARTATE AMINO TRANSFERASE 22 U/L (10-37); BILIRUBIN,TOTAL 0.5 MG/DL (0.1-1.0); BLOOD UREA NITROGEN 5 MG/DL (7-18); BUN/CREATININE RATIO 6.6 (6.6-38.0); CALCIUM 8.1 MG/DL (8.5-10.1); CHLORIDE 115 MMOL/L (99-107); CREATININE 0.76 MG/DL (0.40-0.90); GLUCOSE 96 MG/DL (70-104); POTASSIUM 3.1 MMOL/L (3.5-5.1); SODIUM 150 MMOL/L (135-145); TOTAL CARBON DIOXIDE 26.9 MMOL/L (24-32); TOTAL PROTEIN 5.4 G/DL (6.4-8.2); eGFR > 90 ML/MIN
[2020-03-04 10:07] LABS: OSMOLALITY 298 MOSM/K (280-300)
--- NOTE | 2020-03-04 11:00 | NUR ---
Patient's temperature steadily climbing from 36.8 this AM to 37.7. Attempting ice bags to groin and armpits prior to acetaminophen administration.
--- NOTE | 2020-03-04 11:27 | NUR ---
Spoke to patient's mother, Mack, and was informed that patient's boyfriend had recently tested positive for Gonorrhea. Pt. mother suggested that we may need to test patient for it as well. Spoke with Dr. Sequeira and he ordered a gonorrhea lab as well as an HIV rapid 1&2. Called Ms. Giron and asked permission to test for HIV as well and she agreed it would be for the best.
--- NOTE | 2020-03-04 12:03 | NUR ---
Initial: Pt intubated admit s/p OD w/ seizures and received CVVH. Hx depression,SI, meth/heroin abuse, and etoh use EXTRUSION MACHINE OPERATOR per EMR. Pending physical assessment at this time w/ new admit. 1500ml stool noted in EMR though unsure if accurate w/ no BM noted. NPO at this time receiving electrolyte replacements per protocol. EN recs below in case prolonged intubation. Will continue to monitor. Rec: 1. IF TF; Vital AF at 70ml/hr goal 2. IF TF; water flush 200ml Q4; IF HD/CVVH additional water flush per MD 3. IF TF; PALB Q /; daily wts 4. thiamin, folic, MVI if true etoh hx 5. routine bowel care Addendum: 03/04/20 at [address] Amended: Links added.
[2020-03-04] MEDS: midazolam 100mg in NS 100ml 100 ML IV PRN ×2 (14:27→22:40)
[2020-03-04 15:47] LABS: HIV ANTIBODY 1&2 RAPID NON-REACTIVE (Neg)
[2020-03-04 17:18] LABS: BASOPHILS % (AUTO) 0.1 % (0-1); EOSINOPHILS % (AUTO) 0.1 % (0-6); HEMATOCRIT 30.3 % (35.0-45.0); HEMOGLOBIN 10.1 g/dl (12.0-16.0); LYMPHOCYTES # (AUTO) 0.8 X10'3 (1.1-4.8); LYMPHOCYTES % (AUTO) 8.5 % (21-51); MEAN CORPUSCULAR HGB CONC 33.5 g/dL (33.0-36.5); MEAN CORPUSCULAR VOLUME 89.4 FL (78-98); MEAN PLATELET VOLUME 7.3 FL (7.4-10.4); MONOCYTES # (AUTO) 0.5 X10'3 (0-0.9); MONOCYTES % (AUTO) 5.1 % (2-12); NEUTROPHILS # (AUTO) 8.6 X10'3 (1.8-7.7); NEUTROPHILS % (AUTO) 86.2 % (42-75); PLATELET COUNT 146 X10'3 (140-440); RED BLOOD COUNT 3.38 X10'6 (4.20-5.60); RED CELL DISTRIBUTION WIDTH 13.8 % (11.5-14.5)
[2020-03-04 17:35] LABS: ALANINE AMINOTRANSFERASE 17 U/L (12-78); ALBUMIN 2.9 G/DL (3.4-5.0); ALBUMIN/GLOBULIN RATIO 1.1 (1.1-1.5); ALKALINE PHOSPHATASE 52 IU/L (46-116); ANION GAP 9 (8-16); ASPARTATE AMINO TRANSFERASE 22 U/L (10-37); BILIRUBIN,TOTAL 0.4 MG/DL (0.1-1.0); BLOOD UREA NITROGEN 6 MG/DL (7-18); BUN/CREATININE RATIO 7.4 (6.6-38.0); CALCIUM 7.6 MG/DL (8.5-10.1); CHLORIDE 112 MMOL/L (99-107); CREATINE KINASE 69 U/L (26-192); CREATININE 0.81 MG/DL (0.40-0.90); GLUCOSE 110 MG/DL (70-104); PHOSPHORUS 3.5 MG/DL (2.3-4.5); POTASSIUM 3.3 MMOL/L (3.5-5.1); SODIUM 147 MMOL/L (135-145); TOTAL CARBON DIOXIDE 25.6 MMOL/L (24-32); TOTAL PROTEIN 5.6 G/DL (6.4-8.2); eGFR 85 ML/MIN
[2020-03-04 17:46] LABS: OSMOLALITY 295 MOSM/K (280-300)
--- NOTE | 2020-03-04 18:20 | NUR ---
Patient in room ICU 2038. I have received report from Tammi FLETCHER and had the opportunity to ask questions and assume patient care.
--- NOTE | 2020-03-04 18:22 | NUR ---
Problems reprioritized. Patient report given, questions answered & plan of care reviewed with Jude FLETCHER.
--- NOTE | 2020-03-04 23:40 | NUR ---
Problems reprioritized. Patient report given, questions answered & plan of care reviewed with Rylie FLETCHER.
--- NOTE | 2020-03-04 23:40 | NUR ---
Patient in room ICU 2038. I have received report from Jude FLETCHER and had the opportunity to ask questions and assume patient care. Addendum: 03/05/20 at 0115 by Rylie Sargent RN Amended: Links added.
[2020-03-05] VITALS (24 sets, daily range): BP systolic 120–168; BP diastolic 80–102
[2020-03-05] MEDS: sodium bicarbonate (8.4%) inj. 150 MEQ in dextrose 5%-water 1,000 ML IV SCH ×3 (02:23→20:47)
[2020-03-05] MEDS: midazolam 100mg in NS 100ml 100 ML IV PRN ×5 (03:11→22:55)
[2020-03-05 03:15] LABS: BASOPHILS % (AUTO) 0.1 % (0-1); EOSINOPHILS % (AUTO) 0.2 % (0-6); HEMATOCRIT 29.9 % (35.0-45.0); HEMOGLOBIN 9.9 g/dl (12.0-16.0); LYMPHOCYTES # (AUTO) 1.2 X10'3 (1.1-4.8); LYMPHOCYTES % (AUTO) 11.5 % (21-51); MEAN CORPUSCULAR HEMOGLOBIN 29.9 PG (27.0-31.0); MEAN CORPUSCULAR HGB CONC 33.2 g/dL (33.0-36.5); MEAN CORPUSCULAR VOLUME 90.1 FL (78-98); MEAN PLATELET VOLUME 7.7 FL (7.4-10.4); MONOCYTES # (AUTO) 0.6 X10'3 (0-0.9); MONOCYTES % (AUTO) 6.1 % (2-12); NEUTROPHILS # (AUTO) 8.2 X10'3 (1.8-7.7); NEUTROPHILS % (AUTO) 82.1 % (42-75); PLATELET COUNT 140 X10'3 (140-440); RED BLOOD COUNT 3.32 X10'6 (4.20-5.60)
[2020-03-05 03:24] LABS: ALANINE AMINOTRANSFERASE 17 U/L (12-78); ALBUMIN 2.8 G/DL (3.4-5.0); ALKALINE PHOSPHATASE 52 IU/L (46-116); ANION GAP 11 (8-16); ASPARTATE AMINO TRANSFERASE 20 U/L (10-37); BILIRUBIN,TOTAL 0.4 MG/DL (0.1-1.0); BLOOD UREA NITROGEN 6 MG/DL (7-18); BUN/CREATININE RATIO 8.7 (6.6-38.0); CALCIUM 7.7 MG/DL (8.5-10.1); CHLORIDE 112 MMOL/L (99-107); CREATINE KINASE 84 U/L (26-192); CREATININE 0.69 MG/DL (0.40-0.90); GLUCOSE 112 MG/DL (70-104); MAGNESIUM 1.9 MG/DL (1.5-2.4); POTASSIUM 3.7 MMOL/L (3.5-5.1); SODIUM 144 MMOL/L (135-145); TOTAL CARBON DIOXIDE 21.2 MMOL/L (24-32); TOTAL PROTEIN 5.7 G/DL (6.4-8.2); eGFR > 90 ML/MIN
[2020-03-05 03:47] LABS: OSMOLALITY 295 MOSM/K (280-300)
[2020-03-05 04:40] LABS: ABG HCO3 21.6 mmol/L (22.0-26.0); ABG OXYGEN SATURATION 96.2 % (94-97); ABG PCO2 (T) 29.1 mmHg (32.0-45.0); FCOHb 0.3 % (0.0-3.9); FMetHb 0.1 % (0.0-1.5); FO2Hb 95.8 % (94-97); PATIENT TEMPERATURE 37.1; PEEP 5 cm H2O; RESPIRATORY RATE 20 b/min; TIDAL VOLUME 450 mL; TOTAL HEMOGLOBIN 10.7 G/dl (12.0-16.0)
--- NOTE | 2020-03-05 06:30 | NUR ---
patient restless, difficult to sedate. titrating sedation for patient comfort and ventilator synchrony. 0630:Problems reprioritized. Patient report given, questions answered & plan of care reviewed with Karson FLETCHER.
[2020-03-05] MEDS: NORepinephrine 8 MG in NS 250ml IV soln IV SCH (07:34)
[2020-03-05] MEDS: K, MAG and/or Phos replacement - Verify level? MC SCH (07:34)
[2020-03-05] MEDS: heparin, porcine 5000 units/ml vial SQ SCH ×2 (07:35→20:03)
[2020-03-05] MEDS: pantoprazole 40 MG vial IV SCH (07:35)
[2020-03-05] MEDS: Levetiracetam-NS 500mg/100ml 100 ML IV SCH ×2 (08:49→20:03)
[2020-03-05 09:33] LABS: BASOPHILS % (AUTO) 0.2 % (0-1); EOSINOPHILS % (AUTO) 0.2 % (0-6); HEMATOCRIT 28.5 % (35.0-45.0); HEMOGLOBIN 9.8 g/dl (12.0-16.0); LYMPHOCYTES % (AUTO) 9.6 % (21-51); MEAN CORPUSCULAR HEMOGLOBIN 30.7 PG (27.0-31.0); MEAN CORPUSCULAR HGB CONC 34.3 g/dL (33.0-36.5); MEAN CORPUSCULAR VOLUME 89.6 FL (78-98); MEAN PLATELET VOLUME 7.6 FL (7.4-10.4); MONOCYTES # (AUTO) 0.6 X10'3 (0-0.9); MONOCYTES % (AUTO) 5.6 % (2-12); NEUTROPHILS # (AUTO) 8.5 X10'3 (1.8-7.7); NEUTROPHILS % (AUTO) 84.4 % (42-75); PLATELET COUNT 134 X10'3 (140-440); RED BLOOD COUNT 3.18 X10'6 (4.20-5.60); RED CELL DISTRIBUTION WIDTH 14.2 % (11.5-14.5)
[2020-03-05 09:45] LABS: ALANINE AMINOTRANSFERASE 16 U/L (12-78); ALBUMIN 2.7 G/DL (3.4-5.0); ALBUMIN/GLOBULIN RATIO 0.9 (1.1-1.5); ALKALINE PHOSPHATASE 53 IU/L (46-116); ANION GAP 9 (8-16); ASPARTATE AMINO TRANSFERASE 20 U/L (10-37); BILIRUBIN,TOTAL 0.5 MG/DL (0.1-1.0); BLOOD UREA NITROGEN 5 MG/DL (7-18); BUN/CREATININE RATIO 9.1 (6.6-38.0); CALCIUM 7.6 MG/DL (8.5-10.1); CHLORIDE 115 MMOL/L (99-107); CREATININE 0.55 MG/DL (0.40-0.90); GLUCOSE 114 MG/DL (70-104); POTASSIUM 3.8 MMOL/L (3.5-5.1); SODIUM 146 MMOL/L (135-145); TOTAL CARBON DIOXIDE 22.2 MMOL/L (24-32); TOTAL PROTEIN 5.6 G/DL (6.4-8.2); eGFR > 90 ML/MIN
[2020-03-05 09:46] LABS: CREATINE KINASE 261 U/L (26-192); MAGNESIUM 1.8 MG/DL (1.5-2.4); PHOSPHORUS 2.8 MG/DL (2.3-4.5)
[2020-03-05 09:50] LABS: OSMOLALITY 291 MOSM/K (280-300)
[2020-03-05] MEDS: dexmedetomidine/D5W 100mL 100 ML IV SCH ×3 (10:47→22:55)
[2020-03-05] MEDS ORDERED: POTASSIUM BICARB 20meq eff tab 20 MEQ TABLET.EFF OGT PRN ×2 (11:48→11:49)
[2020-03-05] MEDS ORDERED: Neutra Phos packet OGT PRN (11:48)
[2020-03-05] MEDS ORDERED: folic acid 1mg/0.2ml inj IV SCH (12:00)
[2020-03-05] MEDS: thiamine inj. 100 MG, MVI, adult No.4 with vit. K 10 ML in dextrose 5% water 500ml 500 ML IV SCH ×3 (12:43)
--- NOTE | 2020-03-05 12:52 | NUR ---
Initial: Pt intubated admit s/p OD w/ seizures and received CVVH. Hx depression,SI, meth/heroin abuse, and etoh use COATER per EMR. Pending physical assessment at this time w/ new admit. 1500ml stool noted in EMR though unsure if accurate w/ no BM noted. NPO at this time receiving electrolyte replacements per protocol. EN recs below in case prolonged intubation. Will continue to monitor. Rec: 1. Continuous tube feeding using Vital AF at 70ml/hr goal. Start at 30 ml/hr and advance as tolerated by 20 ml q 8 hours to goal. 2. Additonal water flush 200ml q 4 hours; IF HD/CVVH additional water flush per MD 3. PALB q /; daily wts 4. Continue folic acid, banana bag 5. routine bowel care Addendum: 03/05/20 at [address] Amended: Links added.
[2020-03-05] MEDS: propofol 1000mg/100ml bottle 100 ML IV SCH (13:50)
--- NOTE | 2020-03-05 14:27 | NUR ---
Lab called positive MRSA nasal swab.
--- NOTE | 2020-03-05 18:19 | NUR ---
Patient in room ICU 2038. I have received report from CHANCE Ty and had the opportunity to ask questions and assume patient care.
--- NOTE | 2020-03-05 18:20 | NUR ---
Problems reprioritized. Patient report given, questions answered & plan of care reviewed with Ana FLETCHER.
[2020-03-06] VITALS (24 sets, daily range): BP systolic 125–182; BP diastolic 66–113
[2020-03-06] MEDS: dexmedetomidine/D5W 100mL 100 ML IV SCH ×6 (02:29→20:37)
[2020-03-06 03:42] LABS: ALANINE AMINOTRANSFERASE 16 U/L (12-78); ALBUMIN 2.6 G/DL (3.4-5.0); ALBUMIN/GLOBULIN RATIO 0.9 (1.1-1.5); ALKALINE PHOSPHATASE 57 IU/L (46-116); ANION GAP 10 (8-16); ASPARTATE AMINO TRANSFERASE 26 U/L (10-37); BILIRUBIN,TOTAL 0.8 MG/DL (0.1-1.0); CALCIUM 7.8 MG/DL (8.5-10.1); CHLORIDE 105 MMOL/L (99-107); CREATININE 0.55 MG/DL (0.40-0.90); GLUCOSE 138 MG/DL (70-104); POTASSIUM 3.4 MMOL/L (3.5-5.1); SODIUM 139 MMOL/L (135-145); TOTAL CARBON DIOXIDE 24.5 MMOL/L (24-32); TOTAL PROTEIN 5.6 G/DL (6.4-8.2); eGFR > 90 ML/MIN
[2020-03-06 03:43] LABS: BLOOD UREA NITROGEN 6 MG/DL (7-18); BUN/CREATININE RATIO 10.9 (6.6-38.0)
[2020-03-06 03:57] LABS: BASOPHILS % (AUTO) 0.1 % (0-1); EOSINOPHILS % (AUTO) 0.5 % (0-6); HEMOGLOBIN 9.8 g/dl (12.0-16.0); LYMPHOCYTES % (AUTO) 10.9 % (21-51); MEAN CORPUSCULAR HEMOGLOBIN 30.2 PG (27.0-31.0); MEAN CORPUSCULAR HGB CONC 33.8 g/dL (33.0-36.5); MEAN CORPUSCULAR VOLUME 89.4 FL (78-98); MEAN PLATELET VOLUME 8.1 FL (7.4-10.4); MONOCYTES # (AUTO) 0.4 X10'3 (0-0.9); MONOCYTES % (AUTO) 4.5 % (2-12); NEUTROPHILS # (AUTO) 7.8 X10'3 (1.8-7.7); PLATELET COUNT 127 X10'3 (140-440); RED BLOOD COUNT 3.24 X10'6 (4.20-5.60); RED CELL DISTRIBUTION WIDTH 13.5 % (11.5-14.5); WHITE BLOOD COUNT 9.3 X10'3 (4.5-11.0)
--- NOTE | 2020-03-06 04:00 | NUR ---
While in patient room, pt became extremely agitated and was thrashing in bed. Then began vomiting. HOB was raised and patient was suctioned. Patient had not had high residuals this shift, OG was repositioned and placed to suction, about 150mL out after vomiting. April Willis,IRA was notified. Order for zodewayne was received. Will give and continue to monitor.
[2020-03-06] MEDS ORDERED: ondansetron/PF 4mg/2ml inj ONE (04:01)
[2020-03-06] MEDS: ondansetron/PF 4mg/2ml inj IV PRN (04:03)
[2020-03-06 04:51] LABS: ABG BASE EXCESS 0.3 mmol/L (-2.0-2.0); ABG HCO3 23.3 mmol/L (22.0-26.0); ABG OXYGEN SATURATION 93.6 % (94-97); ABG PCO2 (T) 33.2 mmHg (32.0-45.0); ABG PO2 (T) 74.6 mmHg (75.0-100.0); FCOHb 0.3 % (0.0-3.9); FMetHb 0.1 % (0.0-1.5); FO2Hb 93.2 % (94-97); PEEP 5 cm H2O; RESPIRATORY RATE 18 b/min; TIDAL VOLUME 450 mL
[2020-03-06] MEDS: sodium bicarbonate (8.4%) inj. 150 MEQ in dextrose 5%-water 1,000 ML IV SCH (05:22)
--- NOTE | 2020-03-06 06:32 | NUR ---
Problems reprioritized. Patient report given, questions answered & plan of care reviewed with CHANCE Ty.
--- NOTE | 2020-03-06 06:32 | NUR ---
I have reviewed and agree with all interventions, medication administrations, assessments performed and documented by CHANCE Mcclure.
[2020-03-06] MEDS: thiamine inj. 100 MG, MVI, adult No.4 with vit. K 10 ML in dextrose 5% water 500ml 500 ML IV SCH ×3 (09:01)
[2020-03-06] MEDS: heparin, porcine 5000 units/ml vial SQ SCH ×2 (09:02→20:36)
[2020-03-06] MEDS: folic acid 1mg tablet OGT SCH (09:02)
[2020-03-06] MEDS: K, MAG and/or Phos replacement - Verify level? MC SCH (09:02)
[2020-03-06] MEDS: Levetiracetam-NS 500mg/100ml 100 ML IV SCH ×2 (09:03→20:36)
[2020-03-06] MEDS: pantoprazole 40 MG vial IV SCH (09:03)
[2020-03-06] MEDS: midazolam 100mg in NS 100ml 100 ML IV PRN ×3 (09:41→20:36)
--- NOTE | 2020-03-06 11:25 | NUR ---
Poison control called and wanted an update on pt. Poison control will continue to follow until extubated.
[2020-03-06] MEDS ORDERED: ipratropium/albuterol 3ml nebule NEB PRN (17:00)
[2020-03-06] MEDS: potassium Cl 20mEq/100mL bag 100 ML IV PRN ×2 (17:05→18:01)
--- NOTE | 2020-03-06 18:21 | NUR ---
Problems reprioritized. Patient report given, questions answered & plan of care reviewed with Ana FLETCHER.
--- NOTE | 2020-03-06 18:30 | NUR ---
Patient in room ICU 2038. I have received report from CHANCE Ty and had the opportunity to ask questions and assume patient care.
[2020-03-06] MEDS: ipratropium/albuterol 3ml nebule NEB SCH ×2 (19:34→22:39)
[2020-03-06] MEDS ORDERED: LORazepam 2 mg/ml vial IV ONE (20:20)
[2020-03-06] MEDS ORDERED: fentaNYL/PF 50MCG/1 ML 2ML syringe IV ONE (21:25)
--- NOTE | 2020-03-06 21:50 | NUR ---
April Willis, WET MACHINE OPERATOR brought to bedside. Pt with severe agitation, thrashing all extremities and hitting self on side rails, thrashing head from side to side causing high risk for self extubation. Pt bolused with several boluses of versed to help calm agitation. Despite high doses of versed and maxed out versed and precedex pt continues to thrash and be severely agitated. WET MACHINE OPERATOR ordered ativan which was given, little relief was achieved but pt became severely agitated moments later. Fentanyl IV push was then ordered which has now been given, will continue to monitor and continue updating WET MACHINE OPERATOR with pt's RASS score.
[2020-03-06] MEDS: FENTANYL-0.9 % NACL/PF 100 ML IV PRN (23:29)
[2020-03-07] VITALS (24 sets, daily range): BP systolic 120–164; BP diastolic 66–97
[2020-03-07] MEDS: midazolam 100mg in NS 100ml 100 ML IV PRN ×6 (00:28→20:00)
[2020-03-07] MEDS: dexmedetomidine/D5W 100mL 100 ML IV SCH ×5 (00:34→20:01)
[2020-03-07] MEDS: ipratropium/albuterol 3ml nebule NEB SCH ×6 (02:20→23:00)
[2020-03-07 03:05] LABS: ALANINE AMINOTRANSFERASE 14 U/L (12-78); ALBUMIN 2.4 G/DL (3.4-5.0); ALBUMIN/GLOBULIN RATIO 0.7 (1.1-1.5); ALKALINE PHOSPHATASE 55 IU/L (46-116); ANION GAP 9 (8-16); ASPARTATE AMINO TRANSFERASE 23 U/L (10-37); BILIRUBIN,TOTAL 0.7 MG/DL (0.1-1.0); BLOOD UREA NITROGEN 5 MG/DL (7-18); BUN/CREATININE RATIO 9.4 (6.6-38.0); CALCIUM 7.5 MG/DL (8.5-10.1); CHLORIDE 105 MMOL/L (99-107); CREATININE 0.53 MG/DL (0.40-0.90); GLUCOSE 112 MG/DL (70-104); MAGNESIUM 1.6 MG/DL (1.5-2.4); SODIUM 138 MMOL/L (135-145); TOTAL CARBON DIOXIDE 23.8 MMOL/L (24-32); TOTAL PROTEIN 5.7 G/DL (6.4-8.2); eGFR > 90 ML/MIN
[2020-03-07 03:10] LABS: POTASSIUM 2.9 MMOL/L (3.5-5.1)
[2020-03-07 03:10] LABS: ABG BASE EXCESS -1.3 mmol/L (-2.0-2.0); ABG HCO3 22.5 mmol/L (22.0-26.0); ABG OXYGEN SATURATION 96.2 % (94-97); ABG PCO2 (T) 33.2 mmHg (32.0-45.0); ABG PO2 (T) 81.1 mmHg (75.0-100.0); FCOHb 0.3 % (0.0-3.9); FMetHb 0.3 % (0.0-1.5); FO2Hb 95.6 % (94-97); PATIENT TEMPERATURE 36.1; PEEP 5 cm H2O; RESPIRATORY RATE 16 b/min; TIDAL VOLUME 450 mL
[2020-03-07 03:21] LABS: BASOPHILS % (AUTO) 0.3 % (0-1); EOSINOPHILS # (AUTO) 0.1 X10'3 (0-0.9); EOSINOPHILS % (AUTO) 1.1 % (0-6); HEMATOCRIT 26.1 % (35.0-45.0); HEMOGLOBIN 8.8 g/dl (12.0-16.0); LYMPHOCYTES % (AUTO) 13.3 % (21-51); MEAN CORPUSCULAR HGB CONC 33.7 g/dL (33.0-36.5); MEAN PLATELET VOLUME 7.9 FL (7.4-10.4); MONOCYTES # (AUTO) 0.5 X10'3 (0-0.9); MONOCYTES % (AUTO) 7.1 % (2-12); NEUTROPHILS # (AUTO) 5.7 X10'3 (1.8-7.7); NEUTROPHILS % (AUTO) 78.2 % (42-75); PLATELET COUNT 135 X10'3 (140-440); RED BLOOD COUNT 2.93 X10'6 (4.20-5.60); WHITE BLOOD COUNT 7.3 X10'3 (4.5-11.0)
[2020-03-07] MEDS: potassium Cl 20mEq/100mL bag 100 ML IV PRN ×6 (03:27→17:34)
[2020-03-07] MEDS: FENTANYL-0.9 % NACL/PF 100 ML IV PRN ×4 (05:24→21:24)
--- NOTE | 2020-03-07 06:43 | NUR ---
Problems reprioritized. Patient report given, questions answered & plan of care reviewed with CHANCE Whitley.
[2020-03-07] MEDS: K, MAG and/or Phos replacement - Verify level? MC SCH (08:00)
[2020-03-07] MEDS: pantoprazole 40 MG vial IV SCH (09:18)
[2020-03-07] MEDS: thiamine inj. 100 MG, MVI, adult No.4 with vit. K 10 ML in dextrose 5% water 500ml 500 ML IV SCH ×3 (09:18)
[2020-03-07] MEDS: Levetiracetam-NS 500mg/100ml 100 ML IV SCH (09:18)
[2020-03-07] MEDS: heparin, porcine 5000 units/ml vial SQ SCH ×2 (09:19→20:02)
[2020-03-07] MEDS: folic acid 1mg tablet OGT SCH (09:19)
[2020-03-07] MEDS ORDERED: loratadine 10mg tablet PO PRN (11:05)
[2020-03-07] MEDS ORDERED: non-formulary drug (Acetaminophen (Tylenol Extra Strength) 2 TAB) PO PRN (11:05)
[2020-03-07] MEDS ORDERED: Melatonin 3mg tablet PO PRN (11:05)
[2020-03-07] MEDS: buprenorphine/naloxone 8MG-2MG SUBlingual film SL SCH ×2 (12:04→20:38)
--- NOTE | 2020-03-07 12:34 | NUR ---
Reassessment: Pt TF held at this time previously turned off r/t vomiting episodes w/ OG to suction 450ml output at this time. LBM 03/05. Pt thrashing on heavy sedation per EMR. Receiving electrolyte replacements per protocol as well as banana bag for etoh hx. Will continue to monitor. Rec: 1. Continuous tube feeding using Vital AF at 70ml/hr goal. Start at 30 ml/hr and advance as tolerated by 20 ml q 8 hours to goal. 2. Additional water flush 200ml q 4 hours; IF HD/CVVH additional water flush per MD 3. PALB q /; daily wts 4. Continue folic acid, banana bag 5. routine bowel care 6. upon extubation; advance to regular diet pending FACILITIES ASSISTANT BSS recs Addendum: 03/07/20 at [address] Amended: Links added.
[2020-03-07] MEDS: gabapentin 300mg capsule PO SCH ×2 (14:15→20:38)
[2020-03-07] MEDS: levetiracetam 250mg tablet PO SCH (20:02)
[2020-03-07] MEDS: busPIRone 15mg tablet PO SCH (20:02)
[2020-03-07] MEDS: amitriptyline 50mg tablet PO SCH (20:38)
[2020-03-07] MEDS: sertraline 25mg tablet PO SCH (20:38)
[2020-03-08] VITALS (24 sets, daily range): BP systolic 91–160; BP diastolic 50–91
[2020-03-08] MEDS: acetaminophen 325mg/10.15ml oral unit dose solution PO PRN (00:11)
[2020-03-08] MEDS: midazolam 100mg in NS 100ml 100 ML IV PRN ×5 (00:12→20:19)
[2020-03-08] MEDS: dexmedetomidine/D5W 100mL 100 ML IV SCH ×6 (00:12→21:04)
[2020-03-08] MEDS: FENTANYL-0.9 % NACL/PF 100 ML IV PRN ×2 (01:07→05:41)
[2020-03-08] MEDS: ipratropium/albuterol 3ml nebule NEB SCH ×5 (03:20→21:11)
[2020-03-08 03:33] LABS: BASOPHILS % (AUTO) 0.2 % (0-1); EOSINOPHILS # (AUTO) 0.3 X10'3 (0-0.9); EOSINOPHILS % (AUTO) 4.9 % (0-6); HEMATOCRIT 24.1 % (35.0-45.0); HEMOGLOBIN 8.2 g/dl (12.0-16.0); LYMPHOCYTES # (AUTO) 1.2 X10'3 (1.1-4.8); LYMPHOCYTES % (AUTO) 18.3 % (21-51); MEAN CORPUSCULAR HEMOGLOBIN 30.2 PG (27.0-31.0); MEAN CORPUSCULAR HGB CONC 34.3 g/dL (33.0-36.5); MEAN CORPUSCULAR VOLUME 88.2 FL (78-98); MEAN PLATELET VOLUME 7.8 FL (7.4-10.4); MONOCYTES # (AUTO) 0.6 X10'3 (0-0.9); MONOCYTES % (AUTO) 8.8 % (2-12); NEUTROPHILS # (AUTO) 4.5 X10'3 (1.8-7.7); NEUTROPHILS % (AUTO) 67.8 % (42-75); PLATELET COUNT 149 X10'3 (140-440); RED BLOOD COUNT 2.73 X10'6 (4.20-5.60); WHITE BLOOD COUNT 6.7 X10'3 (4.5-11.0)
[2020-03-08] MEDS: ondansetron/PF 4mg/2ml inj IV PRN (03:33)
[2020-03-08 03:46] LABS: ALANINE AMINOTRANSFERASE 14 U/L (12-78); ALBUMIN 2.2 G/DL (3.4-5.0); ALBUMIN/GLOBULIN RATIO 0.6 (1.1-1.5); ALKALINE PHOSPHATASE 60 IU/L (46-116); ANION GAP 9 (8-16); ASPARTATE AMINO TRANSFERASE 16 U/L (10-37); BILIRUBIN,TOTAL 0.8 MG/DL (0.1-1.0); BLOOD UREA NITROGEN 3 MG/DL (7-18); BUN/CREATININE RATIO 5.7 (6.6-38.0); CALCIUM 7.9 MG/DL (8.5-10.1); CHLORIDE 103 MMOL/L (99-107); CREATININE 0.53 MG/DL (0.40-0.90); GLUCOSE 102 MG/DL (70-104); MAGNESIUM 1.7 MG/DL (1.5-2.4); POTASSIUM 3.3 MMOL/L (3.5-5.1); PREALBUMIN 14.2 MG/DL (19-36); SODIUM 135 MMOL/L (135-145); TOTAL CARBON DIOXIDE 22.7 MMOL/L (24-32); TOTAL PROTEIN 5.7 G/DL (6.4-8.2); eGFR > 90 ML/MIN
[2020-03-08 04:06] LABS: ABG BASE EXCESS -3.2 mmol/L (-2.0-2.0); ABG HCO3 22.9 mmol/L (22.0-26.0); ABG PCO2 (T) 45.6 mmHg (32.0-45.0); ABG PO2 (T) 46.8 mmHg (75.0-100.0); FCOHb 0.3 % (0.0-3.9); FO2Hb 76.8 % (94-97); PATIENT TEMPERATURE 37.1; TOTAL HEMOGLOBIN 10.6 G/dl (12.0-16.0)
[2020-03-08] MEDS ORDERED: labetalol 20mg/4ml (5mg/ml) syringe IV ONE (04:40)
[2020-03-08 05:11] LABS: ABG BASE EXCESS -3.9 mmol/L (-2.0-2.0); ABG HCO3 31.8 mmol/L (22.0-26.0); ABG OXYGEN SATURATION 91.1 % (94-97); ABG PCO2 (T) > 171.0 mmHg (32.0-45.0); ABG PO2 (T) 102.6 mmHg (75.0-100.0); FCOHb 0.3 % (0.0-3.9); FMetHb 0.3 % (0.0-1.5); FO2Hb 90.6 % (94-97); PATIENT TEMPERATURE 37.7; RESPIRATORY RATE 20 b/min; TOTAL HEMOGLOBIN 11.5 G/dl (12.0-16.0)
[2020-03-08] MEDS ORDERED: NORepinephrine 8mg/ 250ml NS 250 ML IV PRN (05:45)
[2020-03-08] MEDS ORDERED: normal saline 1000ml 1,000 ML IVB ONE (05:45)
[2020-03-08] MEDS: racepinephrine 11.25mg/0.5ml nebule IH PRN ×2 (05:47→09:09)
[2020-03-08] MEDS ORDERED: rocuronium 10mg/ml inj IV ONE (05:55)
[2020-03-08] MEDS ORDERED: etomidate 2mg/ml inj. IV ONE (05:55)
--- NOTE | 2020-03-08 06:00 | NUR ---
Pt began to thrashing in bed while changing her linens after her bed bath. As she was thrashing, her tube got stuck on the side rail and as she thrashed her head the other way, she self extubated. Patient was severely agitated and has been difficult to sedate, thus, despite being on versed 20mg, fent 250mcg, precedex 1.5, she was severely restless during her bath which led to her self extubation. All sedation was turned off at this point, patient was bagged and placed on a nonrebreather. April, EMPLOYEE DEVELOPMENT DIRECTOR was notified and came to the bedside. Bipap was ordered and pt was placed on bipap shortly after. Patient continued to be severely agitated for awhile. HR was in 140s and SBP in 180s. Labetalol was ordered. It was about to be given when I noticed that the pt became obtunded. At this point an additional ABG was done and results indicated that intubation was emergently needed. ER doc came up for reintubation, he ordered 70 of suresh and 20 of etomidate, this was given and she was intubated at 0525 with a size 8 tube with tube 24 at the teeth. Pt had clear bilateral breath sounds, anchorfast was placed and patient was placed on volume control with fio2 of 100%. she was having a hard time oxygenating and therefore she needed to be bagged for a little while, she was placed back on the ventilator and had a better time oxygenating. However, she became hypotensive so EMPLOYEE DEVELOPMENT DIRECTOR ordered a 1L bolus of NS. It is now infusing. Will continue to monitor patient.
[2020-03-08 06:01] LABS: ABG HCO3 21.8 mmol/L (22.0-26.0); ABG OXYGEN SATURATION 85.3 % (94-97); ABG PCO2 (T) 50.4 mmHg (32.0-45.0); ABG PO2 (T) 63.3 mmHg (75.0-100.0); FCOHb 0.3 % (0.0-3.9); FMetHb 0.2 % (0.0-1.5); FO2Hb 84.9 % (94-97); PATIENT TEMPERATURE 37.9; PEEP 8 cm H2O; RESPIRATORY RATE 24 b/min; TIDAL VOLUME 450 mL; TOTAL HEMOGLOBIN 10.5 G/dl (12.0-16.0)
--- NOTE | 2020-03-08 06:05 | NUR ---
Pt self extubated. Stridor and poor SpO2. Alert and responsive. Tried pt on bipap 18/8, 65%. Patient oxygenated but did not ventilate. After repeat ABG patient was reintubated.
--- NOTE | 2020-03-08 06:30 | NUR ---
Problems reprioritized. Patient report given, questions answered & plan of care reviewed with CHANCE Whitley.
[2020-03-08] MEDS: potassium Cl 20mEq/100mL bag 100 ML IV PRN ×2 (06:44→09:55)
[2020-03-08] MEDS: magnesium 4gm in 100ml NS 100 ML IV PRN (06:47)
[2020-03-08] MEDS: busPIRone 15mg tablet PO SCH ×2 (08:00→20:20)
[2020-03-08] MEDS: K, MAG and/or Phos replacement - Verify level? MC SCH (08:00)
[2020-03-08] MEDS ORDERED: ipratropium/albuterol 3ml nebule NEB PRN (08:30)
[2020-03-08] MEDS ORDERED: propofol 1000mg/100ml bottle 100 ML IV ONE (09:27)
[2020-03-08 09:36] LABS: ABG BASE EXCESS -5.7 mmol/L (-2.0-2.0); ABG HCO3 25.5 mmol/L (22.0-26.0); ABG OXYGEN SATURATION 97.4 % (94-97); ABG PCO2 (T) 87.7 mmHg (32.0-45.0); ABG PO2 (T) 135.7 mmHg (75.0-100.0); ALLEN'S TEST POSITIVE; FCOHb 0.2 % (0.0-3.9); FLOW 15 L/min; FMetHb 0.4 % (0.0-1.5); FO2Hb 96.8 % (94-97); TOTAL HEMOGLOBIN 10.8 G/dl (12.0-16.0)
[2020-03-08] MEDS ORDERED: FENTANYL-0.9 % NACL/PF 100 ML IV PRN (09:52)
--- NOTE | 2020-03-08 10:30 | NUR ---
Patient extubated this morning after passing weaning parameters but now reintubated for respiratory failure. Became very agitated and then stridorous, treated with RT tx and nrb mask but unsuccessful, abg revealed pCO2 of close to 90 in less than one hour. Pt not responding to commands. Intubated by Dr Tijerina, orders for sedation with Diprovan and Versed. Fentanyl off. Precedex continued.
--- NOTE | 2020-03-08 10:46 | NUR ---
F/u 03/08: Pt self-extubated yesterday and reintubated today pending OG replacement per RN. TF previously held for past 2 days r/t vomiting episode though GRV WNL this admit and pt position w/ thrashing likely to complicate EN tolerance; now sitter at bedside. LUIS EDUARDO d/w community engagement manager regarding corpak given prior reported EN intolerance in addition to long-term likelihood of failing BSS following extubation; no corpak per community engagement manager at this time. Addendum: 03/08/20 at [address] Amended: Links added.
[2020-03-08] MEDS: propofol 1000mg/100ml bottle 100 ML IV SCH ×3 (12:58→19:50)
[2020-03-08] MEDS: pantoprazole 40 MG vial IV SCH (13:00)
[2020-03-08] MEDS: gabapentin 300mg capsule PO SCH ×3 (13:00→20:19)
[2020-03-08] MEDS: heparin, porcine 5000 units/ml vial SQ SCH ×2 (13:01→20:27)
[2020-03-08] MEDS: folic acid 1mg tablet OGT SCH (13:01)
[2020-03-08] MEDS: OLANZapine 2.5MG tablet PO PRN (13:01)
[2020-03-08] MEDS: levetiracetam 250mg tablet PO SCH ×2 (13:01→20:26)
[2020-03-08] MEDS: sertraline 50mg tablet PO SCH (13:09)
[2020-03-08] MEDS: fluticasone nasal spray 16GM bottle NS SCH (13:10)
[2020-03-08] MEDS: thiamine inj. 100 MG, MVI, adult No.4 with vit. K 10 ML in dextrose 5% water 500ml 500 ML IV SCH ×3 (13:10)
--- NOTE | 2020-03-08 18:05 | NUR ---
Patient in room ICU 2038. I have received report from via etienne and had the opportunity to ask questions and assume patient care.
[2020-03-08] MEDS: sertraline 25mg tablet PO SCH (20:20)
[2020-03-08] MEDS: amitriptyline 50mg tablet PO SCH (20:26)
[2020-03-09] VITALS (24 sets, daily range): BP systolic 97–175; BP diastolic 49–101
[2020-03-09] MEDS: midazolam 100mg in NS 100ml 100 ML IV PRN ×6 (01:37→23:54)
[2020-03-09] MEDS: dexmedetomidine/D5W 100mL 100 ML IV SCH ×6 (01:38→20:45)
[2020-03-09 02:32] LABS: BASOPHILS % (AUTO) 0.2 % (0-1); EOSINOPHILS # (AUTO) 0.3 X10'3 (0-0.9); EOSINOPHILS % (AUTO) 5.1 % (0-6); HEMOGLOBIN 8.1 g/dl (12.0-16.0); LYMPHOCYTES # (AUTO) 1.2 X10'3 (1.1-4.8); LYMPHOCYTES % (AUTO) 17.9 % (21-51); MEAN CORPUSCULAR HEMOGLOBIN 29.7 PG (27.0-31.0); MEAN CORPUSCULAR HGB CONC 33.7 g/dL (33.0-36.5); MEAN CORPUSCULAR VOLUME 88.1 FL (78-98); MONOCYTES # (AUTO) 0.5 X10'3 (0-0.9); MONOCYTES % (AUTO) 7.5 % (2-12); NEUTROPHILS # (AUTO) 4.5 X10'3 (1.8-7.7); NEUTROPHILS % (AUTO) 69.3 % (42-75); PLATELET COUNT 195 X10'3 (140-440); RED BLOOD COUNT 2.73 X10'6 (4.20-5.60); RED CELL DISTRIBUTION WIDTH 13.1 % (11.5-14.5); WHITE BLOOD COUNT 6.6 X10'3 (4.5-11.0)
[2020-03-09 02:49] LABS: ALANINE AMINOTRANSFERASE 20 U/L (12-78); ALBUMIN 2.1 G/DL (3.4-5.0); ALBUMIN/GLOBULIN RATIO 0.6 (1.1-1.5); ALKALINE PHOSPHATASE 69 IU/L (46-116); ANION GAP 9 (8-16); ASPARTATE AMINO TRANSFERASE 24 U/L (10-37); BILIRUBIN,TOTAL 0.4 MG/DL (0.1-1.0); BLOOD UREA NITROGEN 6 MG/DL (7-18); BUN/CREATININE RATIO 12.5 (6.6-38.0); CALCIUM 7.6 MG/DL (8.5-10.1); CHLORIDE 106 MMOL/L (99-107); CREATININE 0.48 MG/DL (0.40-0.90); GLUCOSE 98 MG/DL (70-104); POTASSIUM 3.6 MMOL/L (3.5-5.1); SODIUM 137 MMOL/L (135-145); TOTAL CARBON DIOXIDE 21.8 MMOL/L (24-32); TOTAL PROTEIN 5.7 G/DL (6.4-8.2); eGFR > 90 ML/MIN
[2020-03-09] MEDS: ipratropium/albuterol 3ml nebule NEB SCH ×6 (03:08→23:15)
[2020-03-09 03:21] LABS: ABG BASE EXCESS -0.8 mmol/L (-2.0-2.0); ABG HCO3 23.3 mmol/L (22.0-26.0); ABG OXYGEN SATURATION 96.7 % (94-97); ABG PCO2 (T) 37.1 mmHg (32.0-45.0); ABG PO2 (T) 98.5 mmHg (75.0-100.0); FCOHb 0.3 % (0.0-3.9); FMetHb 0.2 % (0.0-1.5); FO2Hb 96.2 % (94-97); PATIENT TEMPERATURE 37.9; PEEP 5 cm H2O; RESPIRATORY RATE 16 b/min; TIDAL VOLUME 450 mL; TOTAL HEMOGLOBIN 8.8 G/dl (12.0-16.0)
[2020-03-09] MEDS: propofol 1000mg/100ml bottle 100 ML IV SCH ×2 (04:54→06:43)
--- NOTE | 2020-03-09 06:30 | NUR ---
Patient in room ICU 2038. I have received report from Madeleine FLETCHER and had the opportunity to ask questions and assume patient care.
[2020-03-09] MEDS: folic acid 1mg tablet OGT SCH (07:30)
[2020-03-09] MEDS: levetiracetam 250mg tablet PO SCH ×2 (07:30→20:02)
[2020-03-09] MEDS: busPIRone 15mg tablet PO SCH ×2 (07:30→20:01)
[2020-03-09] MEDS: fluticasone nasal spray 16GM bottle NS SCH (07:30)
[2020-03-09] MEDS: sertraline 50mg tablet PO SCH (07:30)
[2020-03-09] MEDS: heparin, porcine 5000 units/ml vial SQ SCH ×2 (07:30→20:02)
[2020-03-09] MEDS: gabapentin 300mg capsule PO SCH ×3 (07:30→21:08)
[2020-03-09] MEDS: pantoprazole 40 MG vial IV SCH (07:30)
[2020-03-09] MEDS: K, MAG and/or Phos replacement - Verify level? MC SCH (08:00)
[2020-03-09] MEDS: thiamine inj. 100 MG, MVI, adult No.4 with vit. K 10 ML in dextrose 5% water 500ml 500 ML IV SCH ×3 (09:43)
[2020-03-09] MEDS: acetaminophen 325mg/10.15ml oral unit dose solution PO PRN (10:02)
[2020-03-09] MEDS ORDERED: ipratropium/albuterol 3ml nebule NEB PRN (10:35)
[2020-03-09] MEDS ORDERED: racepinephrine 11.25mg/0.5ml nebule NEB PRN (10:35)
--- NOTE | 2020-03-09 10:40 | NUR ---
Pt extubated. Stridor present.
[2020-03-09] MEDS ORDERED: acetylcysteine 200 MG/ml 4ml vial INH ONE (11:05)
[2020-03-09] MEDS: racepinephrine 11.25mg/0.5ml nebule NEB PRN ×2 (11:31→15:52)
[2020-03-09 12:21] LABS: ABG BASE EXCESS -7.7 mmol/L (-2.0-2.0); ABG HCO3 23.9 mmol/L (22.0-26.0); ABG PCO2 (T) 87.4 mmHg (32.0-45.0); ABG PO2 (T) 132.8 mmHg (75.0-100.0); FCOHb 0.3 % (0.0-3.9); FMetHb 0.4 % (0.0-1.5); FO2Hb 96.3 % (94-97); TOTAL HEMOGLOBIN 11.3 G/dl (12.0-16.0)
[2020-03-09 12:51] LABS: ABG BASE EXCESS -5.9 mmol/L (-2.0-2.0); ABG HCO3 23.2 mmol/L (22.0-26.0); ABG OXYGEN SATURATION 91.2 % (94-97); ABG PCO2 (T) 64.9 mmHg (32.0-45.0); ABG PO2 (T) 79.5 mmHg (75.0-100.0); FCOHb 0.3 % (0.0-3.9); FMetHb 0.2 % (0.0-1.5); FO2Hb 90.7 % (94-97); RESPIRATORY RATE 24 b/min; TIDAL VOLUME 638 mL
[2020-03-09 14:44] LABS: HBSAG SCREEN Negative (Negative)
[2020-03-09 14:45] LABS: ABG BASE EXCESS -3.7 mmol/L (-2.0-2.0); ABG HCO3 24.9 mmol/L (22.0-26.0); ABG OXYGEN SATURATION 91.2 % (94-97); ABG PCO2 (T) 64.5 mmHg (32.0-45.0); ABG PO2 (T) 77.7 mmHg (75.0-100.0); ALLEN'S TEST POSITIVE; FCOHb 0.3 % (0.0-3.9); FMetHb 0.2 % (0.0-1.5); FO2Hb 90.7 % (94-97); PATIENT TEMPERATURE 37.4; RESPIRATORY RATE 24 b/min; TIDAL VOLUME 536 mL; TOTAL HEMOGLOBIN 11.2 G/dl (12.0-16.0)
--- NOTE | 2020-03-09 14:51 | NUR ---
Reported blood gas results to Dr Tijerina. Orders to continue with BiPAP.
[2020-03-09] MEDS: ondansetron/PF 4mg/2ml inj IV PRN (15:56)
--- NOTE | 2020-03-09 18:10 | NUR ---
Patient in room ICU 2038. I have received report from Oswaldo FLETCHER and had the opportunity to ask questions and assume patient care.
--- NOTE | 2020-03-09 18:22 | NUR ---
PT trashing around making it difficult for Bipap mask to stay in place and be effective. Versed was running at 8mg/hr and had been increases to 10mg/her. PT is on Bipap, sitter at bedside. Will continue to monitor.
--- NOTE | 2020-03-09 19:50 | NUR ---
Received verbal order from EYEGLASS LENS GENERATOR Willis to place and NGT so that PT's meds can be administered. NGT Placed to RT nare with no issues, placement verified via auscultation and aspiration. will give meds and continue to monitor.
[2020-03-09] MEDS ORDERED: acetylcysteine 200 MG/ml 4ml vial PO SCH (20:00)
[2020-03-09] MEDS: OLANZapine 2.5MG tablet PO PRN (20:02)
[2020-03-09] MEDS: amitriptyline 50mg tablet PO SCH (21:08)
[2020-03-09] MEDS: sertraline 25mg tablet PO SCH (21:08)
[2020-03-10] VITALS (24 sets, daily range): BP systolic 114–144; BP diastolic 53–95
--- NOTE | 2020-03-10 | NUR ---
PT is resting comfortably at this time. Tolerating Versed and Precedex well. Sitter remains at bedside. Will continue to monitor.
[2020-03-10] MEDS: dexmedetomidine/D5W 100mL 100 ML IV SCH ×6 (00:46→19:44)
[2020-03-10] MEDS: ipratropium/albuterol 3ml nebule NEB SCH ×4 (02:52→20:34)
[2020-03-10 03:03] LABS: BASOPHILS % (AUTO) 0.4 % (0-1); EOSINOPHILS % (AUTO) 0.1 % (0-6); HEMATOCRIT 29.3 % (35.0-45.0); HEMOGLOBIN 9.7 g/dl (12.0-16.0); LYMPHOCYTES # (AUTO) 0.7 X10'3 (1.1-4.8); LYMPHOCYTES % (AUTO) 7.4 % (21-51); MEAN CORPUSCULAR HEMOGLOBIN 29.5 PG (27.0-31.0); MEAN CORPUSCULAR HGB CONC 33.2 g/dL (33.0-36.5); MEAN PLATELET VOLUME 7.4 FL (7.4-10.4); MONOCYTES # (AUTO) 0.7 X10'3 (0-0.9); MONOCYTES % (AUTO) 7.4 % (2-12); NEUTROPHILS # (AUTO) 8.2 X10'3 (1.8-7.7); NEUTROPHILS % (AUTO) 84.7 % (42-75); PLATELET COUNT 342 X10'3 (140-440); RED CELL DISTRIBUTION WIDTH 13.1 % (11.5-14.5); WHITE BLOOD COUNT 9.7 X10'3 (4.5-11.0)
[2020-03-10 03:21] LABS: ALANINE AMINOTRANSFERASE 26 U/L (12-78); ALBUMIN 2.6 G/DL (3.4-5.0); ALBUMIN/GLOBULIN RATIO 0.6 (1.1-1.5); ALKALINE PHOSPHATASE 87 IU/L (46-116); ANION GAP 4 (8-16); ASPARTATE AMINO TRANSFERASE 18 U/L (10-37); BILIRUBIN,TOTAL 0.3 MG/DL (0.1-1.0); BLOOD UREA NITROGEN 5 MG/DL (7-18); BUN/CREATININE RATIO 9.6 (6.6-38.0); CHLORIDE 106 MMOL/L (99-107); CREATININE 0.52 MG/DL (0.40-0.90); GLUCOSE 106 MG/DL (70-104); MAGNESIUM 1.9 MG/DL (1.5-2.4); POTASSIUM 4.6 MMOL/L (3.5-5.1); SODIUM 143 MMOL/L (135-145); TOTAL CARBON DIOXIDE 32.7 MMOL/L (24-32); TOTAL PROTEIN 7.1 G/DL (6.4-8.2); eGFR > 90 ML/MIN
[2020-03-10 03:26] LABS: ABG OXYGEN SATURATION 98.3 % (94-97); ABG PCO2 (T) 43.6 mmHg (32.0-45.0); ABG PO2 (T) 122.4 mmHg (75.0-100.0); FCOHb 0.3 % (0.0-3.9); FMetHb 0.2 % (0.0-1.5); FO2Hb 97.8 % (94-97); PATIENT TEMPERATURE 37.9; RESPIRATORY RATE 38 b/min; TOTAL HEMOGLOBIN 10.9 G/dl (12.0-16.0)
--- NOTE | 2020-03-10 04:09 | NUR ---
PT began to cough, Bipap mask was removed briefly so PT could attempt to cough up and clear secretions. PT was able to cough up secretions to mouth and nursing was able to suction with Yankauer. PT maintained O2 sat of > 94%. Pt was also asked to stated full name in which she did, PT was also asked if the remembered where she was and she nodded her head yes and stated "the hospital". Oral care was performed while Bipap mask was off and PT also stated she was thirsty, oral swab with water was provided. Versed and Precedex continue to run and PT is tolerating well. Will continue to monitor.
[2020-03-10] MEDS: midazolam 100mg in NS 100ml 100 ML IV PRN (05:50)
[2020-03-10] MEDS: acetaminophen 325mg/10.15ml oral unit dose solution PO PRN (05:51)
--- NOTE | 2020-03-10 06:26 | NUR ---
Problems reprioritized. Patient report given, questions answered & plan of care reviewed with Oswaldo FLETCHER.
--- NOTE | 2020-03-10 06:30 | NUR ---
Patient in room ICU 2038. I have received report from CHANCE Roque and had the opportunity to ask questions and assume patient care.
[2020-03-10] MEDS: thiamine inj. 100 MG, MVI, adult No.4 with vit. K 10 ML in dextrose 5% water 500ml 500 ML IV SCH ×3 (07:48)
[2020-03-10] MEDS: levetiracetam 250mg tablet PO SCH (07:48)
[2020-03-10] MEDS: gabapentin 300mg capsule PO SCH (07:48)
[2020-03-10] MEDS: folic acid 1mg tablet OGT SCH (07:49)
[2020-03-10] MEDS: busPIRone 15mg tablet PO SCH (07:49)
[2020-03-10] MEDS: pantoprazole 40 MG vial IV SCH (07:49)
[2020-03-10] MEDS: sertraline 50mg tablet PO SCH (07:49)
[2020-03-10] MEDS: heparin, porcine 5000 units/ml vial SQ SCH ×2 (07:50→19:32)
[2020-03-10] MEDS: fluticasone nasal spray 16GM bottle NS SCH (07:50)
[2020-03-10] MEDS: K, MAG and/or Phos replacement - Verify level? MC SCH (08:00)
--- NOTE | 2020-03-10 10:54 | NUR ---
TF Consult: Pt extubated w/ NG placed for nutrition at this time s/p failed DICTAPHONE OPERATOR BSS. Previously receiving TF at 40ml/hr prior to extubation; will restart at 40ml/hr since tolerating previously. Updated EN recs below off the vent. LBM 03/09. Will continue to monitor for EN tolerance. Rec: 1. Continuous NGTF using Jevity 1.2 at 55ml/hr goal; to provide 1320ml fluid, 1069ml free water, 1584kcals, and 73g protein. Initiate at 40 ml/hr since tolerating prior TF at 40ml/hr and advance as tolerated by 20ml q 8 hours to goal. 2. Additional water flush 200ml q 4 hours 3. PALB q /; daily wts 4. Continue folic acid, banana bag for etoh 5. routine bowel care 6. advance to regular as medically indicated per DICTAPHONE OPERATOR/MD recs 7. Keep NGTF until PO at least 50% avg meals once diet is advanced for optimal nutrition intake Addendum: 03/10/20 at [address] Amended: Links added.
[2020-03-10] MEDS: vancomycin/NS 1 GM ADD-VANTAGE 250 ML IV SCH ×2 (11:09→19:31)
[2020-03-10] MEDS ORDERED: amitriptyline 50mg tablet NG SCH (11:44)
[2020-03-10] MEDS ORDERED: acetaminophen 325mg/10.15ml oral unit dose solution NG PRN (11:44)
[2020-03-10] MEDS ORDERED: folic acid 1mg tablet NG SCH (11:45)
[2020-03-10] MEDS ORDERED: loratadine 10mg tablet NG PRN (11:46)
[2020-03-10] MEDS ORDERED: sertraline 25mg tablet NG SCH (11:47)
[2020-03-10] MEDS ORDERED: sertraline 50mg tablet NG SCH (11:47)
[2020-03-10] MEDS ORDERED: OLANZapine 2.5MG tablet NG PRN (11:48)
[2020-03-10] MEDS ORDERED: POTASSIUM BICARB 20meq eff tab 20 MEQ TABLET.EFF NG PRN (11:48)
[2020-03-10] MEDS: gabapentin 300mg capsule NG SCH ×2 (12:54→20:48)
--- NOTE | 2020-03-10 18:24 | NUR ---
Patient in room ICU 2038. I have received report from Oswaldo FLETCHER and had the opportunity to ask questions and assume patient care.
[2020-03-10] MEDS: levetiracetam 250mg tablet NG SCH (19:32)
[2020-03-10] MEDS: busPIRone 15mg tablet NG SCH (19:32)
[2020-03-11] VITALS (22 sets, daily range): BP systolic 123–150; BP diastolic 70–102
[2020-03-11] MEDS: dexmedetomidine/D5W 100mL 100 ML IV SCH ×2 (00:55→05:41)
[2020-03-11] MEDS: ipratropium/albuterol 3ml nebule NEB SCH ×4 (02:43→20:41)
[2020-03-11 05:23] LABS: ALANINE AMINOTRANSFERASE 49 U/L (12-78); ALBUMIN 2.8 G/DL (3.4-5.0); ALBUMIN/GLOBULIN RATIO 0.6 (1.1-1.5); ALKALINE PHOSPHATASE 90 IU/L (46-116); ANION GAP 9 (8-16); ASPARTATE AMINO TRANSFERASE 36 U/L (10-37); BILIRUBIN,TOTAL 0.3 MG/DL (0.1-1.0); BLOOD UREA NITROGEN 8 MG/DL (7-18); BUN/CREATININE RATIO 14.3 (6.6-38.0); CHLORIDE 104 MMOL/L (99-107); CREATININE 0.56 MG/DL (0.40-0.90); GLUCOSE 114 MG/DL (70-104); MAGNESIUM 1.8 MG/DL (1.5-2.4); SODIUM 140 MMOL/L (135-145); TOTAL CARBON DIOXIDE 26.9 MMOL/L (24-32); TOTAL PROTEIN 7.2 G/DL (6.4-8.2); eGFR > 90 ML/MIN
[2020-03-11 05:27] LABS: BASOPHILS % (AUTO) 0.4 % (0-1); EOSINOPHILS # (AUTO) 0.2 X10'3 (0-0.9); EOSINOPHILS % (AUTO) 1.9 % (0-6); HEMATOCRIT 33.4 % (35.0-45.0); HEMOGLOBIN 11.4 g/dl (12.0-16.0); LYMPHOCYTES # (AUTO) 1.5 X10'3 (1.1-4.8); LYMPHOCYTES % (AUTO) 18.6 % (21-51); MEAN CORPUSCULAR HEMOGLOBIN 30.2 PG (27.0-31.0); MEAN CORPUSCULAR HGB CONC 34.2 g/dL (33.0-36.5); MEAN CORPUSCULAR VOLUME 88.1 FL (78-98); MEAN PLATELET VOLUME 7.4 FL (7.4-10.4); MONOCYTES # (AUTO) 0.8 X10'3 (0-0.9); MONOCYTES % (AUTO) 9.7 % (2-12); NEUTROPHILS # (AUTO) 5.7 X10'3 (1.8-7.7); NEUTROPHILS % (AUTO) 69.4 % (42-75); PLATELET COUNT 408 X10'3 (140-440); RED BLOOD COUNT 3.79 X10'6 (4.20-5.60); RED CELL DISTRIBUTION WIDTH 12.6 % (11.5-14.5); WHITE BLOOD COUNT 8.3 X10'3 (4.5-11.0)
[2020-03-11 05:30] LABS: POTASSIUM 2.7 MMOL/L (3.5-5.1)
[2020-03-11] MEDS: POTASSIUM BICARB 20meq eff tab 20 MEQ TABLET.EFF NG PRN ×2 (05:41→09:39)
--- NOTE | 2020-03-11 06:15 | NUR ---
Patient in room ICU 2038. I have received report from Jude FLETCHER and had the opportunity to ask questions and assume patient care.
--- NOTE | 2020-03-11 06:25 | NUR ---
Problems reprioritized. Patient report given, questions answered & plan of care reviewed with Domingo Pimentel RN
[2020-03-11] MEDS: fluticasone nasal spray 16GM bottle NS SCH (07:43)
[2020-03-11] MEDS: pantoprazole 40 MG vial IV SCH (07:43)
[2020-03-11] MEDS: vancomycin/NS 1 GM ADD-VANTAGE 250 ML IV SCH ×2 (07:43→20:42)
[2020-03-11] MEDS: gabapentin 300mg capsule NG SCH (07:44)
[2020-03-11] MEDS: heparin, porcine 5000 units/ml vial SQ SCH ×2 (07:44→19:26)
[2020-03-11] MEDS: levetiracetam 250mg tablet NG SCH (07:44)
[2020-03-11] MEDS: busPIRone 15mg tablet NG SCH (07:45)
[2020-03-11] MEDS: K, MAG and/or Phos replacement - Verify level? MC SCH (08:00)
[2020-03-11] MEDS: thiamine inj. 100 MG, MVI, adult No.4 with vit. K 10 ML in dextrose 5% water 500ml 500 ML IV SCH ×3 (10:23)
[2020-03-11] MEDS ORDERED: acetaminophen 325mg/10.15ml oral unit dose solution PO PRN (11:02)
[2020-03-11] MEDS ORDERED: loratadine 10mg tablet PO PRN (11:03)
[2020-03-11] MEDS ORDERED: POTASSIUM BICARB 20meq eff tab 20 MEQ TABLET.EFF PO PRN (11:04)
[2020-03-11] MEDS ORDERED: OLANZapine 2.5MG tablet PO PRN (11:04)
[2020-03-11] MEDS: gabapentin 300mg capsule PO SCH ×2 (12:51→21:30)
--- NOTE | 2020-03-11 18:05 | NUR ---
Problems reprioritized. Patient report given, questions answered & plan of care reviewed with Jude FLETCHER.
--- NOTE | 2020-03-11 18:15 | NUR ---
Patient in room ICU 2038. I have received report from Domingo FLETCHER and had the opportunity to ask questions and assume patient care.
[2020-03-11] MEDS: busPIRone 15mg tablet PO SCH (19:26)
[2020-03-11] MEDS: levetiracetam 250mg tablet PO SCH (19:26)
[2020-03-11] MEDS ORDERED: VANCOMYCIN LEVEL IV ONE (19:30)
--- NOTE | 2020-03-11 20:30 | NUR ---
Patient in room PCU 3015. I have received report from Graciela FLETCHER by telephone from ER and had the opportunity to ask questions and assume patient care. Then gave report to efren Mcclure RN.
--- NOTE | 2020-03-11 20:47 | NUR ---
Problems reprioritized. Patient report given, questions answered & plan of care reviewed with Alejandra FLETCHER.
[2020-03-11] MEDS: sertraline 25mg tablet PO SCH (21:30)
[2020-03-11] MEDS: amitriptyline 50mg tablet PO SCH (21:30)
[2020-03-12 02:00] VITALS: BP 123/90
[2020-03-12] MEDS: ipratropium/albuterol 3ml nebule NEB SCH ×4 (02:45→20:46)
[2020-03-12 05:55] LABS: EOSINOPHILS # (AUTO) 0.1 X10'3 (0-0.9); MEAN CORPUSCULAR VOLUME 87.5 FL (78-98); MONOCYTES # (AUTO) 0.8 X10'3 (0-0.9)
[2020-03-12 05:57] LABS: BASOPHILS % (AUTO) 0.4 % (0-1); EOSINOPHILS % (AUTO) 1.2 % (0-6); HEMATOCRIT 36.7 % (35.0-45.0); HEMOGLOBIN 12.6 g/dl (12.0-16.0); LYMPHOCYTES # (AUTO) 1.6 X10'3 (1.1-4.8); LYMPHOCYTES % (AUTO) 17.5 % (21-51); MEAN CORPUSCULAR HEMOGLOBIN 30.1 PG (27.0-31.0); MEAN CORPUSCULAR HGB CONC 34.4 g/dL (33.0-36.5); MONOCYTES % (AUTO) 8.8 % (2-12); NEUTROPHILS # (AUTO) 6.7 X10'3 (1.8-7.7); NEUTROPHILS % (AUTO) 72.1 % (42-75); PLATELET COUNT 642 X10'3 (140-440); RED BLOOD COUNT 4.19 X10'6 (4.20-5.60); RED CELL DISTRIBUTION WIDTH 13.2 % (11.5-14.5); WHITE BLOOD COUNT 9.3 X10'3 (4.5-11.0)
--- NOTE | 2020-03-12 05:57 | NUR ---
[place] documentation: I have reviewed and agree with all interventions, assessments, medication passed performed and documented by Kami FLETCHER.
[2020-03-12 06:00] VITALS: BP 138/86
[2020-03-12 06:20] LABS: ALANINE AMINOTRANSFERASE 131 U/L (12-78); ALBUMIN 3.3 G/DL (3.4-5.0); ALBUMIN/GLOBULIN RATIO 0.6 (1.1-1.5); ALKALINE PHOSPHATASE 105 IU/L (46-116); ANION GAP 12 (8-16); ASPARTATE AMINO TRANSFERASE 72 U/L (10-37); BILIRUBIN,TOTAL 0.4 MG/DL (0.1-1.0); BLOOD UREA NITROGEN 11 MG/DL (7-18); BUN/CREATININE RATIO 15.9 (6.6-38.0); CALCIUM 9.6 MG/DL (8.5-10.1); CHLORIDE 102 MMOL/L (99-107); CREATININE 0.69 MG/DL (0.40-0.90); GLUCOSE 104 MG/DL (70-104); MAGNESIUM 1.9 MG/DL (1.5-2.4); PHOSPHORUS 3.9 MG/DL (2.3-4.5); POTASSIUM 3.3 MMOL/L (3.5-5.1); SODIUM 140 MMOL/L (135-145); TOTAL CARBON DIOXIDE 26.1 MMOL/L (24-32); TOTAL PROTEIN 8.4 G/DL (6.4-8.2); eGFR > 90 ML/MIN
--- NOTE | 2020-03-12 06:23 | NUR ---
Patient in room PCU 3015. I have received report from CHANCE Sunshine and had the opportunity to ask questions and assume patient care.
--- NOTE | 2020-03-12 06:28 | NUR ---
Problems reprioritized. Patient report given, questions answered & plan of care reviewed with CHANCE Kay.
--- NOTE | 2020-03-12 06:42 | NUR ---
Problems reprioritized. Patient report given, questions answered & plan of care reviewed with Eliza FLETCHER.
[2020-03-12] MEDS: K, MAG and/or Phos replacement - Verify level? MC SCH (08:00)
[2020-03-12] MEDS: fluticasone nasal spray 16GM bottle NS SCH (08:00)
[2020-03-12] MEDS: gabapentin 300mg capsule PO SCH ×3 (08:49→20:54)
[2020-03-12] MEDS: sertraline 50mg tablet PO SCH (08:49)
[2020-03-12] MEDS: levetiracetam 250mg tablet PO SCH ×2 (08:49→20:55)
[2020-03-12] MEDS: folic acid 1mg tablet PO SCH (08:49)
[2020-03-12] MEDS: busPIRone 15mg tablet PO SCH ×2 (08:50→20:53)
[2020-03-12] MEDS: POTASSIUM BICARB 20meq eff tab 20 MEQ TABLET.EFF PO PRN ×3 (08:55→20:55)
[2020-03-12] MEDS: heparin, porcine 5000 units/ml vial SQ SCH ×2 (08:58→20:55)
[2020-03-12] MEDS: vancomycin/NS 1 GM ADD-VANTAGE 250 ML IV SCH (09:01)
[2020-03-12] MEDS: buprenorphine/naloxone 8MG-2MG SUBlingual film SL PRN ×2 (09:50→18:45)
[2020-03-12 11:00] VITALS: BP 128/70
[2020-03-12 15:00] VITALS: BP 118/67
[2020-03-12 18:00] VITALS: BP 110/68
--- NOTE | 2020-03-12 18:30 | NUR ---
Problems reprioritized. Patient report given, questions answered & plan of care reviewed with CHANCE Kay.
[2020-03-12] MEDS: VANCOmycin 1250MG/NS 250ml Bag 250 ML IV SCH (18:49)
[2020-03-12] MEDS: lactobacillus rhamnosus 10,000 MMU CELLS/CAPSULE PO SCH (20:53)
[2020-03-12] MEDS: sertraline 25mg tablet PO SCH (20:54)
[2020-03-12] MEDS: amitriptyline 50mg tablet PO SCH (20:54)
[2020-03-12 22:00] VITALS: BP 107/68
[2020-03-13] MEDS: VANCOmycin 1250MG/NS 250ml Bag 250 ML IV SCH ×2 (00:34→08:52)
[2020-03-13 02:03] VITALS: BP 106/62
[2020-03-13] MEDS: ipratropium/albuterol 3ml nebule NEB SCH ×2 (03:00→08:22)
--- NOTE | 2020-03-13 06:20 | NUR ---
Problems reprioritized. Patient report given, questions answered & plan of care reviewed with Lauren FLETCHER.
[2020-03-13 06:35] VITALS: BP 89/46
--- NOTE | 2020-03-13 06:35 | NUR ---
Patient in room U 3015. I have received report from DANAE FLETCHER and had the opportunity to ask questions and assume patient care. SITTER AT BEDSIDE. PT DENIES NEEDS. Addendum: 03/13/20 at 0738 by Awilda Regalado RN Amended: Links added.
[2020-03-13] MEDS: buprenorphine/naloxone 8MG-2MG SUBlingual film SL PRN (07:15)
[2020-03-13] MEDS: lactobacillus rhamnosus 10,000 MMU CELLS/CAPSULE PO SCH (07:16)
[2020-03-13] MEDS: gabapentin 300mg capsule PO SCH (07:17)
[2020-03-13] MEDS: levetiracetam 250mg tablet PO SCH (07:17)
[2020-03-13] MEDS: sertraline 50mg tablet PO SCH (07:17)
[2020-03-13] MEDS: busPIRone 15mg tablet PO SCH (07:17)
[2020-03-13] MEDS: heparin, porcine 5000 units/ml vial SQ SCH (07:18)
[2020-03-13] MEDS: folic acid 1mg tablet PO SCH (07:18)
--- NOTE | 2020-03-13 08:20 | NUR ---
0820 RT AT PATIENTS BEDSIDE FOR Q6 SVN TX. PT CURRENTLY EATING BREAKFAST AND ASKED TO POSTPONE SVN FOR A LATER TIME. RT WILL TRY TO RETURN AT A LATER TIME. PT SHOWING NO SIGNS OF SOB/DISTRESS. Addendum: 03/13/20 at 0822 by Lucinda Plunkett RT Amended: Links added.
[2020-03-13 09:38] LABS: BASOPHILS # (AUTO) 0.1 X10'3 (0-0.2); EOSINOPHILS # (AUTO) 0.5 X10'3 (0-0.9); HEMOGLOBIN 12.1 g/dl (12.0-16.0); MEAN PLATELET VOLUME 7.1 FL (7.4-10.4); MONOCYTES # (AUTO) 0.9 X10'3 (0-0.9)
[2020-03-13 09:40] LABS: BASOPHILS % (AUTO) 0.7 % (0-1); HEMATOCRIT 35.3 % (35.0-45.0); LYMPHOCYTES # (AUTO) 2.7 X10'3 (1.1-4.8); LYMPHOCYTES % (AUTO) 28.2 % (21-51); MEAN CORPUSCULAR HEMOGLOBIN 30.1 PG (27.0-31.0); MEAN CORPUSCULAR HGB CONC 34.3 g/dL (33.0-36.5); MEAN CORPUSCULAR VOLUME 87.8 FL (78-98); MONOCYTES % (AUTO) 9.1 % (2-12); NEUTROPHILS # (AUTO) 5.5 X10'3 (1.8-7.7); PLATELET COUNT 662 X10'3 (140-440); RED BLOOD COUNT 4.02 X10'6 (4.20-5.60); WHITE BLOOD COUNT 9.7 X10'3 (4.5-11.0)
[2020-03-13 09:54] LABS: ALANINE AMINOTRANSFERASE 160 U/L (12-78); ALBUMIN/GLOBULIN RATIO 0.7 (1.1-1.5); ALKALINE PHOSPHATASE 110 IU/L (46-116); ANION GAP 4 (8-16); ASPARTATE AMINO TRANSFERASE 79 U/L (10-37); BILIRUBIN,TOTAL 0.4 MG/DL (0.1-1.0); BLOOD UREA NITROGEN 15 MG/DL (7-18); BUN/CREATININE RATIO 25.4 (6.6-38.0); CALCIUM 9.2 MG/DL (8.5-10.1); CHLORIDE 101 MMOL/L (99-107); CREATININE 0.59 MG/DL (0.40-0.90); GLUCOSE 87 MG/DL (70-104); MAGNESIUM 1.8 MG/DL (1.5-2.4); PHOSPHORUS 5.2 MG/DL (2.3-4.5); POTASSIUM 4.1 MMOL/L (3.5-5.1); SODIUM 138 MMOL/L (135-145); TOTAL CARBON DIOXIDE 33.5 MMOL/L (24-32); TOTAL PROTEIN 7.3 G/DL (6.4-8.2); eGFR > 90 ML/MIN
--- NOTE | 2020-03-13 13:17 | NUR ---
PT D/C TO [facility]. ALL WRITTEN AND VERBAL ORDERS FOR D/C GIVEN. REPORT CALLED TO [facility] AND GIVEN TO CHANCE HITCHCOCK. ALL QUESTIONS ANSWERED. PT STATED SHE HAD ALL BELONGINGS. PT REMAINS IN ROOM WITH SITTER. [facility] WILL COME AND TAKE HER TO HER UNIT.
[2020-03-13] MEDS ORDERED: VANCOMYCIN LEVEL IV ONE (16:30)
[2020-03-25] MEDS ORDERED: HYDR50TA65 PO (07:17)
[2020-03-25] MEDS ORDERED: PRAZ1CAP5 PO (07:17)
[2020-03-25] MEDS ORDERED: TRAZ-251 PO (07:17)
[2020-03-25] MEDS ORDERED: NICO-687 TD (07:17)
[2020-03-25] MEDS ORDERED: SERT25TA5 PO (07:17)
[2020-03-25] MEDS ORDERED: BUS15T PO (07:17)
[2020-03-25] MEDS ORDERED: SERT100T PO (07:17)
[2020-03-25] MEDS ORDERED: NICO-668 BC (07:17)
[2020-03-25] MEDS ORDERED: GABA600T13 PO (07:17)
[2020-03-25] MEDS ORDERED: BUPR1FIL3 SL ×3 (07:17→12:54)
[2020-03-25] MEDS ORDERED: LEVE750T66 PO (07:17)
== END 2020-03-13 13:22 | disposition psychiatric hospital, planned readmission (93) | DRG 812 ==
LOC: ER 13:18 → ED HOLD 15:06 → ICU 2S 19:10 → PCU 3S 03-11 21:07
PROVIDERS: ADMIT Internal Medicine Critical Care Medicine; ATTEND Internal Medicine Critical Care Medicine
PROC: 06HM33Z Insertion of Infusion Device into Right Femoral Vein, Percutaneous Approach (ICD-10-PCS; 2020-03-03)
PROC: 5A1955Z Respiratory Ventilation, Greater than 96 Consecutive Hours (ICD-10-PCS; 2020-03-03)
PROC: 0BH17EZ Insertion of Endotracheal Airway into Trachea, Via Natural or Artificial Opening (ICD-10-PCS; 2020-03-03)
PROC: 4A00X4Z Measurement of Central Nervous Electrical Activity, External Approach (ICD-10-PCS; principal; 2020-03-05)
PROC: 5A09357 Assistance with Respiratory Ventilation, Less than 24 Consecutive Hours, Continuous Positive Airway Pressure (ICD-10-PCS; 2020-03-08)
PROC: 5A09357 Assistance with Respiratory Ventilation, Less than 24 Consecutive Hours, Continuous Positive Airway Pressure (ICD-10-PCS; 2020-03-09)
PROC: 5A09357 Assistance with Respiratory Ventilation, Less than 24 Consecutive Hours, Continuous Positive Airway Pressure (ICD-10-PCS; 2020-03-10)
DX: T43.012A Poisoning by tricyclic antidepressants, intentional self-harm, initial encounter (principal); Y92.89 Other specified places as the place of occurrence of the external cause; F32.9 Major depressive disorder, single episode, unspecified; G40.909 Epilepsy, unspecified, not intractable, without status epilepticus; G93.89 Other specified disorders of brain; J96.00 Acute respiratory failure, unspecified whether with hypoxia or hypercapnia; R40.20 Unspecified coma
CPT/HCPCS: 31500; 36415; 36556; 36600; 71045; 76937; 80053; 80069; 80202; 80305; 80320; 80329; 80337; 81003; 81025; 82330; 82550; 82800; 82803; 82948; 83605; 83735; 83930; 83935; 84100; 84132; 84134; 84145; 84439; 84443; 85018; 85025; 85610; 85730; 86703; 86706; 87040; 87070; 87077; 87081; 87186; 87340; 87491; 90935; 92508; 92616; 93005; 94002; 94003; 94640; 94660; 94760; 95816; 97116; 97161; 97530; 99291; 99292; C9113; E1594; G0378; J0330; J1644; J1953; J2060; J2405; J2560; J2704; J3010; J3370; J3411; J3475; J3480; J7030; J7040; J7050; J7060

== ENCOUNTER 2021-01-30 16:15 | Emergency (ER) | payer MEDICAID ==
[~2021-01-30] VITALS: Ht 167.6 cm; Wt 72.7 kg
[~2021-01-30 16:15] MED LIST changes: +ALBU2.5V10 IH; -AMIT100T2 PO; +BUPR1FIL3 SL; +BUS15T PO; -DULO-31 PO; +FLUT16SP26 NS; +GABA600T13 PO; +HYDR50TA65 PO; -LEVE750T6 PO; +LEVE750T66 PO; +LORA10TA7 PO; +NICO-668 BC; +NICO-687 TD; -ONDA4TAB6 PO; +PRAZ1CAP5 PO; +SERT-432 PO; +SERT100T PO; +TRAZ-251 PO; -etomidate 2mg/ml inj. ONE; -rocuronium 10mg/ml inj IV ONE; -sodium bicarbonate (8.4%) 1 mEq/ml syringe ONE
[2021-01-30] MEDS ORDERED: LORazepam 2 mg/ml vial IV ONE (16:40)
[2021-01-30] MEDS ORDERED: TETanus/Pertussis (Acell)/Diphther VAC/PF (Tdap-Adult) 0.5ml syringe IMVAC ONE (17:30)
[2021-01-30] MEDS ORDERED: morphine 4 MG/ML inj SYRINge IV ONE ×2 (17:55→19:50)
--- NOTE | 2021-01-30 18:27 | NUR ---
Pt medicated with pain meds, pt taken to decon shower and wounds washed with soap and water
[2021-01-30] MEDS ORDERED: CEPH-585 PO (19:43)
[2021-01-30] MEDS ORDERED: SULF1TAB49 PO (19:43)
[2021-01-30] MEDS ORDERED: HYDR-3965 PO (19:44)
[2021-01-30] MEDS ORDERED: cephalexin 500mg capsule PO ONE (19:45)
[2021-01-30] MEDS ORDERED: sulfamethoxazole/trimethoprim DS (800/160mg) tablet PO ONE (19:45)
[2021-01-30 20:02] VITALS: BP 118/81
[2021-01-30 20:14] LABS: HCG SERUM QL NEGATIVE
== END 2021-01-30 20:42 | disposition home or self-care (01) ==
LOC: ER 16:16
DX: S60.512A Abrasion of left hand, initial encounter (principal); S60.511A Abrasion of right hand, initial encounter; X58.XXXA Exposure to other specified factors, initial encounter; Y93.89 Activity, other specified; Y92.89 Other specified places as the place of occurrence of the external cause; Y99.8 Other external cause status
CPT/HCPCS: 36415; 84703; 90471; 90715; 96374; 96375; 96376; 99284; J2060; J2270